=== PATIENT | female | born 1970 | race Caucasian/White ===

== ENCOUNTER → 2021-03-24 13:34 | Outpatient (CLI) | payer MEDICAID, SELFPAY | PROVIDERS: PCP Emergency Medicine; Visit Provider Nurse Practitioner Family | DX: R06.00 Dyspnea, unspecified (principal); R42 Dizziness and giddiness; R94.31 Abnormal electrocardiogram [ECG] [EKG]; R60.9 Edema, unspecified | CPT/HCPCS: 93306 ==

== ENCOUNTER 2021-06-18 15:36 | Emergency (ER) | payer MEDICAID, SELFPAY ==
[2021-06-18 14:57] VITALS: BP 124/70; PULSE 97; RESP 18; TEMP 37.4; O2SAT 99; BMI 36.6
--- NOTE | 2021-06-18 15:09 | XR_ITS ---
PROCEDURE INFORMATION: Exam: XR Left Ankle Exam date and time: 06/18/2021 3:09 PM Age: 50 years old Clinical indication: Pain; Left; Patient HX: [place]ell at park getting off swings and twisted ankle-- large hematoma and swelling present // an additional view oblique was ordered as sent as well; Additional info: Pain/injury TECHNIQUE: Imaging protocol: XR Left ankle. Views: 1 or 2 views. COMPARISON: No relevant prior studies available. FINDINGS: Bones/joints: Fractures of the distal fibula as well as the medial malleolus present. There is no evidence of joint malalignment or dislocation. Soft tissues: Moderate overlying soft tissue swelling. IMPRESSION: 1. Fractures of the distal fibula as well as the medial malleolus present. 2. Moderate overlying soft tissue swelling. 3. No evidence of acute dislocation.
[2021-06-18 15:30] VITALS: BP 123/71; PULSE 84; RESP 17; O2SAT 100
--- NOTE | 2021-06-18 15:32 | XR_ITS ---
PROCEDURE INFORMATION: Exam: XR Left Ankle Exam date and time: 06/18/2021 3:32 PM Age: 50 years old Clinical indication: Pain; Left; Patient HX: [place] park getting [place] swings and twisted ankle-- large hematoma and swelling present // this view ordered in addition to the 2view already sent; Additional info: Pain/injury TECHNIQUE: Imaging protocol: XR Left ankle. Views: 3 or more views. COMPARISON: CR XR ANKLE LT 2V 06/18/2021 3:24 PM FINDINGS: Bones/joints: Fracture of the distal fibula is present with moderate overlying soft tissue swelling. A lucency is present to the medial malleolus and may represent an acute or subacute fracture. There is no evidence of joint malalignment or dislocation. Soft tissues: See Bones/joints finding. IMPRESSION: 1. Fracture of the distal fibula is present with moderate overlying soft tissue swelling. 2. A lucency is present to the medial malleolus and may represent an acute or subacute fracture. 3. No evidence of acute dislocation.
--- NOTE | 2021-06-18 15:37 | HMH.EDGENADL ---
ED Disposition Clinical Impression: Fracture of distal fibula Qualifiers: Encounter type: initial encounter Fracture type: closed Fracture morphology: unspecified fracture morphology Laterality: left Qualified Code(s): S82.832A - Other fracture of upper and lower end of left fibula, initial encounter for closed fracture Disposition: Home, Self-Care Condition on Discharge: Good Instructions: DI for Ankle Fracture, How to Take Care of Your Splint Additional Instructions: Orthopedic boot until seen by Dr. Copeland next week. Apply ice to ankle 20 minutes 4-5 times a day, elevate leg. Additional instructions for FRACTURED (BROKEN) BONE: See Dr. Copeland as soon as possible for further evaluation. Treat your splint like you would a cast: Do not get it wet (cover with a plastic bag while bathing or showering). If the splint feels too tight, you may loosen the ronnie wrap covering it, but do not remove the splint. You may ice the fracture by applying an ice pack over the top of the splint, without removing the splint. Return to an emergency department immediately if you have uncontrollable pain, loss of feeling or inability to move your injured extremity. Additional instructions for CONTROLLED SUBSTANCES: You have been prescribed a medication that is a controlled substance. Controlled substances include pain medications known as opiates and sedative nerve medications known as benzodiazepines. Tramadol, fioricet, and gabapentin are also controlled substances. Some common opiates include: Codeine (such as Tylenol #3) Hydrocodone (Vicodin, Lortab, Lorcet, [place]) Oxycodone (Percocet, Percodan, Oxycodone, Oxy IR) Some common benzodiazepines include: Diazepam (Valium) Lorazepam (Ativan) Alprazolam (Xanax) Clonazepam (Klonopin) Oxazepam (Serax) All of these controlled substances are highly addictive and frequently abused. Misuse can and frequently does lead to addiction as well as overdose and . Medication should be stored in a locked cabinet or other secure storage unit. Do not store the medication in a motor vehicle. Short term supplies, 3 days or less, are prescribed because of the highly addictive nature of the medication. Any of the controlled substance medication NOT taken should be disposed of properly and NOT SAVED. The recommended method of disposing of unused medications is: Place the medicines in a sealable plastic bag. If the medicine is a solid, crush it or add water to dissolve it. Add something undesirable (cat litter, coffee grounds, etc.) Dispose of sealed bag in household trash Do not flush or pour unused medicines down a sink or drain. Controlled substances should not be shared, given away or sold. Because of the addictive nature and frequent abuse, these medications are sometimes stolen. These medications should be kept in a safe place where they cannot be stolen. Do not keep them in your car or purse. Lost or stolen prescriptions for controlled substances WILL NOT BE REFILLED in this emergency department, regardless of whether a police report was filed. Prescriptions: Hydrocod/Acet 5/325 mg [[place] 5/325mg tablet] 1 tab PO Q6HP PRN #10 tab PRN Reason: Pain Prescription Printed Referrals: Provider,Referral, [Primary Care Provider] - Jeremy Copeland MD [Staff Physician] - 3 days - Critical Care Critical Care Time: No Attestation: On , the high probability of a clinically significant, sudden or life threatening deterioration of the following system(s) required my full and direct attention, intervention and personal management. The time I documented below is in addition to time spent performing reported procedures but includes the following listed in this critical care notation. Medical Decision Making - Bruno Inquiry Pt receiving controlled substance: Yes Bruno was queried for this patient: Yes Risks and benefits of using a controlled substance: were discussed with pt
--- NOTE | 2021-06-18 15:54 | PC.NURSE ---
Radiology in room
[2021-06-18 16:00] VITALS: BP 132/76; PULSE 77; RESP 18; O2SAT 97
--- NOTE | 2021-06-18 16:22 | PC.NURSE ---
boot applied to left ankle/leg
[2021-06-18 16:31] VITALS: BP 104/67; PULSE 78; RESP 19; O2SAT 97
[2021-06-18 18:04] VITALS: BP 110/70; PULSE 75; RESP 16; TEMP 36.8; O2SAT 98
== END 2021-06-18 18:05 | disposition home or self-care (01) ==
PROVIDERS: Emergency Provider Emergency Medicine
DX: S82.832A Other fracture of upper and lower end of left fibula, initial encounter for closed fracture (principal); X50.1XXA Overexertion from prolonged static or awkward postures, initial encounter; Y92.197 Garden or yard of other specified residential institution as the place of occurrence of the external cause; F41.9 Anxiety disorder, unspecified
CPT/HCPCS: 29515; 73600; 73610; 96372; 99283; J2405

== ENCOUNTER → 2021-06-24 14:15 | Outpatient (CLI) | payer MEDICAID, SELFPAY ==
--- NOTE | 2021-06-24 15:55 | XR_ITS ---
PROCEDURE INFORMATION: Exam: XR Chest Exam date and time: 06/24/2021 3:55 PM Age: 50 years old Clinical indication: Shortness of breath; Additional info: Smoker TECHNIQUE: Imaging protocol: XR of the chest. Views: 2 views. COMPARISON: No relevant prior studies available. FINDINGS: Lungs: Unremarkable. No consolidation. Pleural spaces: Unremarkable. No pleural effusion. No pneumothorax. Heart/Mediastinum: Unremarkable. No cardiomegaly. Bones/joints: Unremarkable. IMPRESSION: No acute findings.
== END ==
PROVIDERS: PCP Orthopaedic Surgery; Visit Provider Orthopaedic Surgery
DX: Z01.818 Encounter for other preprocedural examination (principal); Z72.0 Tobacco use
CPT/HCPCS: 71046

== ENCOUNTER → 2021-06-24 15:25 | Outpatient (CLI) | payer MEDICAID, SELFPAY ==
[2021-06-24 16:05] LABS: Basophils # 0.1 K/mm3 (0-0.2); Basophils % 0.8 % (0.1-2.0); Eosinophils # 0.2 K/mm3 (0.0-0.4); Eosinophils % 2.1 % (0.1-12.0); Hematocrit 49.3 % (37.0-47.0); Hemoglobin 15.6 g/dL (12.2-16.2); Lymphocytes # 2.2 K/mm3 (0.7-4.5); Lymphocytes % 21.3 % (10-50); Mean Corpuscular HGB Conc 31.7 g/dL (31.8-35.4); Mean Corpuscular Hemoglobin 32.5 pg (27.0-31.2); Mean Corpuscular Volume 102.5 fl (81-99); Monocytes # 0.8 K/mm3 (0.1-1.0); Monocytes % 8.1 % (1.7-9.3); Neutrophils % 67.7 % (37.0-80.0); Platelet Count 306 K/mm3 (142-424); Red Blood Count 4.81 M/mm3 (4.20-5.40); Red Cell Distribution Width 13.3 % (11.5-17.5); White Blood Count 10.3 K/mm3 (4.8-10.8)
[2021-06-24 16:17] LABS: Chloride 102 mmol/L (98-107); Potassium 4.5 mmoL/L (3.5-5.1); Sodium 141 mmol/L (136-145)
[2021-06-24 16:20] LABS: Blood Urea Nitrogen 11 mg/dl (7-17); Estimated Glomerular Filt Rate 89 ml/min (>60); GFR (African American) 108 ML/MIN (>60)
[2021-06-24 16:21] LABS: Anion Gap 14.5 mEq/L (5-15); Calcium 9.7 mg/dl (8.4-10.2); Carbon Dioxide 29 mmol/L (22.0-30.0); Glucose 108 mg/dl (74-100)
== END ==
PROVIDERS: Visit Provider Orthopaedic Surgery
DX: S82.832A Other fracture of upper and lower end of left fibula, initial encounter for closed fracture (principal)
CPT/HCPCS: 36415; 80048; 85025

== ENCOUNTER → 2021-06-29 11:12 | Outpatient (CLI) | payer MEDICAID, SELFPAY ==
--- NOTE | 2021-06-29 11:14 | CT_ITS ---
PROCEDURE: CT ANKLE LT WO CON CLINICAL HISTORY: Left distal fibula fracture COMPARISON: CR XR ANKLE LT 2V from 06/18/2021 CR XR ANKLE LT MIN 3V from 06/18/2021 TECHNIQUE: Axial images obtained with sagittal and coronal reformats. All CT scans at the facility use one or more dose reduction, viz: automated exposure control, ma/kV adjustment per patient size (including targeted exams where dose is matched to indication, i.e. head), or iterative reconstruction technique. FINDINGS: There is an ununited fracture at the base of the medial malleolus with minimal distraction of the fracture fragments by approximately 2 mm. There is good alignment of the medial malleolus. There is a minimally displaced oblique distal fibular fracture with 2 mm dorsal displacement of the distal fracture fragment. There does appear to be some minor bony union along the distal and lateral aspect of this fracture. In addition, there is an avulsion fracture of the anterior most distal aspect the fibula. The anterior fracture fragment measures 13 by 3 mm and is displaced anteriorly by 3-4 mm. Soft tissue swelling is present about the anterior lateral and lateral aspect of the ankle with some subcutaneous edema also noted at this region. The ligaments are not well demonstrated by CT. Tendinous structures have an unremarkable appearance. There is minimal widening of the ankle mortise anteriorly at the region of the avulsed fibular fragment. No additional fractures are apparent. IMPRESSION: 1. Ununited nondisplaced medial malleolar fracture 2. Minimally displaced oblique distal fibular fracture with an avulsion fracture of the anterior and distal tip of the fibula mildly displaced with minimal widening of the ankle mortise Dictated by: Po Ocampo MD 06/30/2021 09:33 Po Ocampo MD in [facility] 06/30/2021 09:33
== END ==
PROVIDERS: PCP Orthopaedic Surgery; Visit Provider Orthopaedic Surgery
DX: Z01.818 Encounter for other preprocedural examination (principal); Z11.52 Encounter for screening for COVID-19; S82.52XK Displaced fracture of medial malleolus of left tibia, subsequent encounter for closed fracture with nonunion; S82.832A Other fracture of upper and lower end of left fibula, initial encounter for closed fracture
CPT/HCPCS: 73700; C9803; U0003; U0005

== ENCOUNTER 2021-07-01 07:10 | Day surgery (SDC) | payer MEDICAID, SELFPAY ==
[2021-07-01] VITALS (9 sets, daily range): BP systolic 115–153; BP diastolic 63–86; PULSE 93–107; RESP 12–18; TEMP 36.4–36.9; O2SAT 92–99; BMI 37.4
--- NOTE | 2021-07-01 08:14 | HMH.ANESCL ---
[facility] Anesthesia Checklist - Structural Data Admitted From: Home Planned Operative Procedure/s: orif l ankle Consent for Planned Operative Procedure(s) Verified: Yes - Additional verifications Anesthesia Reactions: No Hx Blood Transfusions: No Blood Transfusion Reaction: No - Airway Assessment C-Spine Mobility Assessed: Yes TMJ Mobility Assessed: Yes Dentition: Good Dentition - Neurological Assessment Level of Consciousness: Awake, Alert, Appropriate - Anesthesia Plan Anesthesia Risk discussed: Yes Anesthesia Plan: Verified ASA Class: II Anesthesia Type: General w/block - Preoperative Comments Pre-Operative Comments: explained sciatic block to pt incl risks. pt agrees to proceed [facility] History I have reviewed the patient's past medical history: Yes Medical History: Reports:: Anxiety Denies:: Cancer, Diabetes Mellitus Type 1, Diabetes Mellitus Type 2, Internal Pacemaker, MRSA, Seizures *Have you ever received a pneumonia vaccine?: No *Have you received a flu vaccine this season?: No Other Medical History: Denies: Blood Transfusion Reaction Anesthesia experience/problems:: none Laterality Cases: Bilateral: Tonsillectomy Other Surgeries: Yes: Other. No: Pacemaker Amputation: No - *Social History Last grade of school completed: High school graduate Smoking Status: Current every day smoker Tobacco Type: cigarettes # Packs/Day (cigarettes): 1 Alcohol Intake: never Substance Use Type: denies use *Occupational Status:: disabled Housing: assisted living facility *Travel in the last 8 weeks: None - Psychiatric History Pschychiatric History:: Reports:: Anxiety Family Hx:: No significant family history
[2021-07-01 08:17] LABS: Urine Pregnancy, HCG Qual. Negative (Negative)
--- NOTE | 2021-07-01 10:53 | HMH.ANESI ---
[facility] Anesthesia Record Part I Intake, IV Amount: 1,500 Estimated blood loss (mL): 0 Urine output (mL): 0 Blood Pressure: 121/86 SaO2: 94 Pulse Rate: 102 Respiratory Rate: 12 Temperature: 98.2 F Patient is:: Awake, Stable Stable to PACU at:: 10:50
--- NOTE | 2021-07-01 10:54 | XR_ITS ---
PROCEDURE: XR ANKLE LT 2V CLINICAL INDICATION: fX - ORIF LT ANKLE COMPARISON: CR XR ANKLE LT 2V from 06/18/2021 CR XR ANKLE LT MIN 3V from 06/18/2021 FINDINGS: Fluoroscopy time: 1.06 minutes. Status post ORIF medial malleolus and fibula with good alignment. IMPRESSION: Fluoroscopy assisted of the left ankle Dictated by: Po Ocampo MD 07/01/2021 13:12 Po Ocampo MD in [facility] 07/01/2021 13:12
--- NOTE | 2021-07-01 11:43 | HMH.OPNOTE ---
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 I had a discussion with her and her core drill operator regarding further management, given the unstable nature of the bimalleolar ankle fracture with nonunion medial malleolus, I recommended open reduction internal fixation of her left medial and lateral malleolus with allograft of the medial malleolus. They were amenable with the plan. We discussed the risk and benefits of surgery. Risks included but were not limited to pain, bleeding, infection, damage to adjacent structures, need for further surgery, wound healing complications, loss of limb, . Patient and core drill operator expressed verbal consent and written consent was obtained for the above procedure. Patient was identified in preoperative holding. Operative site was marked in indelible ink. History, physical, consent were reviewed and updated. Patient was surrendered to the anesthesia team, taken to the operative suite, placed supine on a well-padded operative table. Ipsilateral hip bump was placed as was a nonsterile thigh tourniquet. Anesthesia was induced. The operative extremity was prepped and draped in the usual sterile fashion. The operative team donned sterile gowns and gloves and a timeout was called. All in attendance agreed regarding the patient's identity, procedure, operative site. Weight-based dose of antibiotics was given prior to incision. I made a lateral approach to the fibula, dissected the skin and subcutaneous tissue with care taken to avoid injuring the superficial peroneal nerve. Identified the fracture, cleaned of interposed hematoma, provisionally reduce this and secure fixation with a lag screw by technique followed by lateral fibular neutralization plate with locking screws. Insert my attention to the medial ankle, dissected through skin and subcutaneous tissue with care taken to avoid injuring the saphenous nerve and vein. Identified the medial malleolar fracture which I freed up with an osteotome, perforated both sides of the fracture, clean date of fibrous tissue, placed V 92 allograft, provisionally clamped and secured fixation with 2 long cortical screws with washers. I performed an external rotation stress test, noted subtle medial joint space widening, manually reduce the syndesmosis and placed a syndesmotic screw through 4 cortices. Wounds were closed in anatomic layers. Sterile dressings applied by well-padded short leg splint. Counts were correct x2. There were no apparent complications. I was present and scrubbed for the entire case. Condition: stable Disposition: PACU Complications:: None
== END 2021-07-01 11:58 | disposition home or self-care (01) ==
LOC: OR 07:12
PROVIDERS: PCP Orthopaedic Surgery; Visit Provider Orthopaedic Surgery
PROC: (CPT 27792; principal; 2021-07-01 07:30)
DX: S82.62XA Displaced fracture of lateral malleolus of left fibula, initial encounter for closed fracture (principal); S82.52XK Displaced fracture of medial malleolus of left tibia, subsequent encounter for closed fracture with nonunion; Y92.096 Garden or yard of other non-institutional residence as the place of occurrence of the external cause; W17.89XA Other fall from one level to another, initial encounter; M24.472 Recurrent dislocation, left ankle
CPT/HCPCS: 27792; 27829; 27720; 73600; 76000; 81025; 96374; C1713; C1776; J2405

== ENCOUNTER → 2021-07-15 10:24 | Outpatient (CLI) | payer MEDICAID, SELFPAY ==
--- NOTE | 2021-07-15 10:35 | XR_ITS ---
PROCEDURE: XR ANKLE LT MIN 3V CLINICAL INDICATION: sp ORIF LT fibula, out of splint COMPARISON: CR XR ANKLE LT MIN 3V from 06/18/2021 FINDINGS: There is a distal fibular metallic side plate with multiple threaded screws fixating the plate to the distal fibula a transfix again stabilizing the fracture distal fibula. One of the threaded screws extends through the fibula into the distal tibia. There also are 2 obliquely oriented threaded screws through transfixing the old medial malleolar fracture fragment in near anatomic alignment. The ankle mortise appears grossly normal. There is mild diffuse soft tissue swelling both medially and laterally. IMPRESSION: Postsurgical changes as noted Dictated by: Dr. Kemal Mitchell MD 07/15/2021 11:01 Dr. Kemal Mitchell MD in [facility] 07/15/2021 11:01
== END ==
PROVIDERS: PCP Emergency Medicine; Visit Provider Orthopaedic Surgery
DX: S82.832D Other fracture of upper and lower end of left fibula, subsequent encounter for closed fracture with routine healing (principal); Z09 Encounter for follow-up examination after completed treatment for conditions other than malignant neoplasm
CPT/HCPCS: 73610

== ENCOUNTER 2021-07-15 11:29 | Outpatient (RCR) | payer MEDICAID, SELFPAY | END 2021-07-15 12:47 | disposition home or self-care (01) | LOC: PT 11:29 | PROVIDERS: Visit Provider Orthopaedic Surgery | DX: S82.832A Other fracture of upper and lower end of left fibula, initial encounter for closed fracture (principal) | CPT/HCPCS: 97760 ==

== ENCOUNTER → 2021-08-19 13:30 | Outpatient (CLI) | payer MEDICAID, SELFPAY ==
--- NOTE | 2021-08-19 13:39 | XR_ITS ---
PROCEDURE: XR ANKLE LT 2V CLINICAL INDICATION: ORIF lt ankle COMPARISON: CR XR ANKLE LT 2V from 06/18/2021 CR XR ANKLE LT MIN 3V from 06/18/2021 CR XR ANKLE LT 2V from 07/01/2021 CR XR ANKLE LT MIN 3V from 07/15/2021 FINDINGS: Status post ORIF distal tib fib. Lateral fibular bone plate with screw extending from the lateral bone plate into the tibia once again noted. Two diagonal screws within the medial malleolar region. There is a healing fracture involving the distal tibia. The fracture has occurred at the region of the transverse screw which extends from the fibula to the tibia. There is 3 mm lateral displacement of the distal fracture fragment. The medial malleolar fracture line is still visible with the distal aspect slightly displaced medially. IMPRESSION: Status post ORIF of the distal tibia and fibula now with a transverse fracture of the distal tibia at the level of the transverse screw extending from the lateral fibular bone plate into the tibia mildly displaced. Un united medial malleolar fracture. Dictated by: Po Ocampo MD 08/19/2021 14:27 Po Ocampo MD in [facility] 08/19/2021 14:27
== END ==
PROVIDERS: PCP Emergency Medicine; Visit Provider Orthopaedic Surgery
DX: S82.832A Other fracture of upper and lower end of left fibula, initial encounter for closed fracture (principal)
CPT/HCPCS: 73600

== ENCOUNTER → 2021-08-25 06:18 | Outpatient (CLI) | payer MEDICAID, SELFPAY ==
--- NOTE | 2021-08-25 06:20 | CT_ITS ---
PROCEDURE INFORMATION: Exam: CT Left Lower Extremity Without Contrast, Ankle Exam date and time: 08/25/2021 6:20 AM Age: 51 years old Clinical indication: Pain; Left; Prior surgery; Surgery date: 1-6 months; Patient HX: Ankle fracure, S/P surgery follow-up; Additional info: S/P lt ankle fracture TECHNIQUE: Imaging protocol: CT of the Left lower extremity without contrast was performed. Exam focused on the ankle. 3D rendering (Not supervised by radiologist): MIP and/or 3D reconstructed images were created by the technologist. Radiation optimization: All CT scans at this facility use at least one of these dose optimization techniques: automated exposure control; mA and/or kV adjustment per patient size (includes targeted exams where dose is matched to clinical indication); or iterative reconstruction. COMPARISON: 1. CT ANKLE LT WO CON 06/29/2021 11:18 AM 2. CR XR ANKLE LT 2V 08/19/2021 2:01 PM 3. CR XR ANKLE LT MIN 3V 07/15/2021 10:37 AM FINDINGS: Bones/joints: There is been no significant change in alignment in the transverse fracture involving the distal tibia at the level of the syndesmotic screw. This fracture demonstrates mild impaction and mild apex anterior angulation. Moderate marginal bone callus suggests that this is subacute. Orthopedic hardware involving the tibia and fibula is grossly intact within the limits of streak metal artifact. The chronic medial malleolus fracture is remains unhealed with minimal peripheral bone callus. The obliquely oriented fibular fracture has a moderate amount of bridging bone callus. Moderate disuse osteopenia is present. Partially healed fractures involve the second through fourth metatarsal bases. Soft tissues: Moderate soft tissue edema involves the ankle. IMPRESSION: 1. Healing mildly impacted and mildly angulated transverse fracture of the distal tibial diametaphysis at the level of the syndesmotic screw. 2. Healing oblique distal fibular fracture. 3. No significant healing involving the chronic medial malleolus fracture. 4. Partially healed fractures involving the second through fourth metatarsal bases. 5. Progressed disuse osteopenia.
== END ==
PROVIDERS: PCP Emergency Medicine; Visit Provider Orthopaedic Surgery
DX: S82.832A Other fracture of upper and lower end of left fibula, initial encounter for closed fracture (principal); Z09 Encounter for follow-up examination after completed treatment for conditions other than malignant neoplasm
CPT/HCPCS: 73700

== ENCOUNTER 2021-12-13 09:00 | Outpatient (RCR) | payer MEDICAID, SELFPAY ==
--- NOTE | 2021-10-25 10:20 | SW/DCPLANNER ---
[facility] has completed a PT evaluation for this patient today and has requested that patient have a rolling walker. I have called and updated Rafael peterson/ Grace/Abilio Schaeffer that this patient will need a rolling walker: PT evaluated has been faxed.
== END 2021-12-13 09:05 | disposition home or self-care (01) ==
LOC: PT 09:00
PROVIDERS: PCP Emergency Medicine; Visit Provider Orthopaedic Surgery
DX: M25.572 Pain in left ankle and joints of left foot (principal)
CPT/HCPCS: 97010; 97014; 97035; 97110; 97112; 97116; 97140; 97163; 97164; 97760; G0283

== ENCOUNTER 2022-06-17 18:08 | Emergency (ER) | payer MEDICAID, SELFPAY ==
--- NOTE | 2022-06-17 18:12 | HMH.EDSKAF ---
Discharge Plan Disposition Patient Disposition: Home, Self-Care Condition: Fair Prescriptions Prescriptions: New prednisone 20 mg tablet 60 mg PO DAILY Qty: 15 0RF No Action aspirin 81 mg tablet,delayed release (DR/EC) 81 mg PO DAILY divalproex [Depakote] 250 mg tablet,delayed release (DR/EC) 250 mg PO TID escitalopram oxalate 20 mg tablet 20 mg PO DAILY nortriptyline 25 mg capsule 25 mg PO HS acetaminophen 500 mg tablet 500 mg PO Q6H PRN (Reason: pain) sennosides [Senna Lax] 8.6 mg tablet 17.2 mg PO DAILY [place] Saline Gel 1 applic TOPICAL HS PRN (Reason: NASAL IRRITATION) Qty: 14.1 0RF aripiprazole 10 mg tablet 10 mg PO oxycodone 5 mg tablet 5 mg PO Q4H PRN (Reason: pain) Qty: 30 0RF metoprolol succinate 50 MG tablet extended release 24 hr 50 mg PO DAILY Activity Restrictions/Add. Instructions Additional Instructions/Restrictions: Follow-up with your primary care physician in about 3 to 4 days for wound check. If the symptoms do not improve within 1 week follow-up with a weed controller. Clinical Impressions Clinical Impression: Contact dermatitis Instructions Patient Instructions: Poison Sushila, Poison Onyx, Poison Sumac, DI for Contact Dermatitis Discharge ED Provider: Antonio Nicole Skin/Abscess/FB HPI General Chief complaint: Skin/Abscess/Foreign Body Stated complaint: rash on right foot, both hands Time Seen by Provider: 06/17/22 18:12 Mode of Arrival: EMS Source of Information: Patient History of Present Illness HPI narrative: The patient was brought to the emergency department by EMS from a psychiatric facility. The patient states that she had a rash that developed on her left small finger. It then spread to the right hand. And also spread to the right foot. It is pruritic. She has been applying cortisone cream. It is now oozing. It hurts when she scratches it. Denies fevers. Related Data Home Medications Medication Instructions Recorded Confirmed acetaminophen 500 mg tablet 500 mg PO Q6H PRN pain 09/15/20 03/14/22 aspirin 81 mg tablet,delayed 81 mg PO DAILY Blood thinner 09/15/20 03/14/22 release divalproex 250 mg tablet,delayed 250 mg PO TID . 09/15/20 03/14/22 release (Depakote) escitalopram oxalate 20 mg tablet 20 mg PO DAILY mood 09/15/20 03/14/22 nortriptyline 25 mg capsule 25 mg PO HS . 09/15/20 03/14/22 sennosides 8.6 mg tablet (Senna 17.2 mg PO DAILY . 09/15/20 03/14/22 Lax) metoprolol succinate 50 mg 50 mg PO DAILY bp 06/28/21 03/14/22 tablet,extended release 24 hr aripiprazole 10 mg tablet 10 mg PO 08/18/21 03/14/22 Previous Rx's Medication Instructions Recorded sodium chloride-aloe vera nasal 1 applic topical HS PRN NASAL 11/22/20 gel ([place] Saline nasal gel) IRRITATION #14.1 grams oxycodone 5 mg tablet 5 mg PO Q4H PRN pain #30 tabs 07/01/21 prednisone 20 mg tablet 60 mg PO DAILY #15 tabs 06/17/22 Allergies Allergy/AdvReac Type Severity Reaction Status Date / Time azithromycin Allergy Verified 03/14/22 15:42 PFSH [facility] Medical History Abnormal EKG Dizziness Dyspnea Edema Social History Smoking Status: Never smoker alcohol intake: never substance use type: denies use current occupational status: disabled Travel in the last 8 weeks: None housing: assisted living facility caffeine: Yes ROS Obtained: Yes All systems reviewed & no additional complaints except as documented Physical Exam General General appearance: alert and in no apparent distress Head Head exam: atraumatic, normocephalic and normal inspection Eye Eye exam: Present normal appearance, PERRL and EOMI ENT ENT exam: Present normal exam, normal oropharynx, mucous membranes moist, TM's normal bilaterally and normal external ear exam Neck Neck exam: Present normal inspection, full ROM and tr
[2022-06-17 18:15] VITALS: BP 119/80; PULSE 113; RESP 18; TEMP 37.2; O2SAT 99; BMI 33.3
--- NOTE | 2022-06-17 19:12 | PC.NURSE ---
spoke with employee at [facility] letting them know the pt was ready to be picked up they stated they will find ride. pt discharged to [facility]
[2022-06-17 19:15] VITALS: BP 107/64; PULSE 93; RESP 18; TEMP 37.2; O2SAT 98
== END 2022-06-17 19:17 | disposition home or self-care (01) ==
PROVIDERS: Emergency Provider Emergency Medicine; PCP Emergency Medicine
DX: L25.9 Unspecified contact dermatitis, unspecified cause (principal)

== ENCOUNTER 2022-06-19 22:47 | Inpatient (IN) | payer MEDICAID, SELFPAY ==
--- NOTE | 2022-06-19 22:42 | ECG_ITS ---
APPROVED REPORT Exam: Resting ECG HR:146 bpm ECG Measurements Heart Rate 146 AXES HI 139 P 61 QRSd 86 QRS -8 QT 291 T 79 QTc 375 Conclusion SINUS TACHYCARDIA, POSSIBLE ATRIAL FLUTTER SEPTAL MYOCARDIAL INFARCTION , PROBABLY OLD [40+ ms Q WAVE IN V1/V2] ABNORMAL ECG UNCONFIRMED REPORT Electronically signed by : Paul Gonzales MD 06/20/2022 19:58:52
[2022-06-19 22:47] VITALS: BP 108/65; PULSE 164; RESP 24; TEMP 38.8; O2SAT 94; BMI 45.7
--- NOTE | 2022-06-19 22:50 | CT_ITS ---
PROCEDURE INFORMATION: Exam: CT Head Without Contrast Exam date and time: 06/19/2022 11:41 PM Age: 51 years old Clinical indication: Injury or trauma; Unconscious; Additional info: Nonresponse TECHNIQUE: Imaging protocol: Computed tomography of the head without contrast. Radiation optimization: All CT scans at this facility use at least one of these dose optimization techniques: automated exposure control; mA and/or kV adjustment per patient size (includes targeted exams where dose is matched to clinical indication); or iterative reconstruction. COMPARISON: No relevant prior studies available. FINDINGS: Brain: No evidence of mass effect or midline shift. Right posterior frontal and right inferior frontal encephalomalacia and gliosis compatible with a remote insult. Patchy areas of hypodensity without mass-effect in the periventricular white matter compatible chronic microvascular ischemic disease. The johnston/white matter interfaces are preserved. The basal cisterns are patent. Cerebral ventricles: No ventriculomegaly. Paranasal sinuses: Visualized sinuses are unremarkable. No fluid levels. Mastoid air cells: Visualized mastoid air cells are well aerated. Bones/joints: Unremarkable. No acute fracture. Soft tissues: Unremarkable. IMPRESSION: 1. No CT evidence of intracranial hemorrhage, mass effect, midline shift or hydrocephalus. 2. Right posterior frontal and right inferior frontal encephalomalacia and gliosis compatible with a remote insult. 3. Patchy areas of hypodensity without mass-effect in the periventricular white matter compatible chronic microvascular ischemic disease.
[2022-06-19 22:51] LABS: ABG Base Excess -5.2 mmol/L (-2.4-2.3); ABG Oxygen Saturation 92 % (90-100); ABG PCO2 28.8 mmhg (35.0-45.0); ABG PH 7.44 mmol/L (7.35-7.45); ABG PO2 60.7 mmhg (80-100); ABG TCO2 19.9 mmhg (23-27)
--- NOTE | 2022-06-19 22:51 | CT_ITS ---
PROCEDURE INFORMATION: Exam: CT Cervical Spine Without Contrast Exam date and time: 06/19/2022 11:41 PM Age: 51 years old Clinical indication: Injury or trauma; Unconscious; Additional info: Nonresponsive TECHNIQUE: Imaging protocol: Computed tomography of the cervical spine without contrast. Radiation optimization: All CT scans at this facility use at least one of these dose optimization techniques: automated exposure control; mA and/or kV adjustment per patient size (includes targeted exams where dose is matched to clinical indication); or iterative reconstruction. COMPARISON: CR XR CHEST PORTABLE 06/19/2022 11:25 PM FINDINGS: Tubes, catheters and devices: NG tube and endotracheal tube in place. Bones/joints: No acute fracture. Normal alignment. No significant disc protrusion. No severe spinal central canal stenosis. C5-C6 left dorsal/lateral osteophyte causing left foraminal stenosis. Lungs: Lung apices are normal. Soft tissues: Unremarkable. IMPRESSION: 1. No acute fractures or listhesis. 2. Cervical spondylosis as described above. 3. NG tube and endotracheal tube in place.
--- NOTE | 2022-06-19 22:52 | XR_ITS ---
PROCEDURE INFORMATION: Exam: XR Pelvis Exam date and time: 06/19/2022 11:25 PM Age: 51 years old Clinical indication: Injury or trauma; Other: Unresponsive; Blunt trauma (contusions or hematomas); Does not apply; Pelvic region; Additional info: Nonresponsive TECHNIQUE: Imaging protocol: Radiologic exam of the pelvis. Views: 1 or 2 view. COMPARISON: No relevant prior studies available. FINDINGS: Bones/joints: Intact. No acute fractures or dislocations identified. There are no lytic or blastic lesions. The joints are preserved. Soft tissues: Unremarkable. Organs: Reich catheter in topography of the urinary bladder. IMPRESSION: No acute fracture or dislocation.
--- NOTE | 2022-06-19 22:52 | PC.NURSE ---
Pt arrived via ems. Per ems patient was found unresponsive in the shower room at [facility] with brown vomitus coming out of both her nose and mouth. When patient came into ER she was on a nonrebreather at 10L. Patient was immediately transferred from EMS stretcher to [facility] stretcher and additional IV, 18 gauge was placed in her left ac, arrived with 20g IV in right forearm with 500cc ns running to it. Patients heart rate on arrival was 160, sinus tach upon EKG.
--- NOTE | 2022-06-19 22:52 | PC.NURSE ---
Patient arrived via ems at 2235. Recepted at 2252. Patient arrived in acute distress, on a nonrebreather at 10L. Per EMS, patient was found unresponsive in the shower room at [place] at roughly
--- NOTE | 2022-06-19 22:54 | XR_ITS ---
PROCEDURE INFORMATION: Exam: XR Chest Exam date and time: 06/19/2022 11:25 PM Age: 51 years old Clinical indication: Device placement; Ett placement (vent status); Patient HX: Et placement and ng placement; Additional info: Nonresponsive TECHNIQUE: Imaging protocol: Radiologic exam of the chest. Views: 1 view. COMPARISON: CR XR CHEST 2V 06/24/2021 4:00 PM FINDINGS: Tubes, catheters and devices: Endotracheal tube 3.5 cm of the shae. NGT with the distal tip in topography of the stomach. Lungs: Central pulmonary vasculature prominence. No evidence of consolidations, interstitial patterns or pulmonary nodules. Pleural spaces: No evidence of effusions or pneumothorax. Heart/Mediastinum: The cardiomediastinal silhouette is normal in size and configuration. There is no evidence of cardiomegaly. Bones/joints: Intact. IMPRESSION: Central pulmonary vasculature prominence. No evidence of consolidations.
--- NOTE | 2022-06-19 23:06 | PC.NURSE ---
spoke with Jossy from night watch loading dose of Keppra 2000 mg.
--- NOTE | 2022-06-19 23:15 | PC.NURSE ---
RAD at BS for tube placement conformation
--- NOTE | 2022-06-19 23:25 | PC.NURSE ---
Addendum entered by Madai Lockhart RN 06/20/22 06:03: Patient also requiring frequent suctioning via ETT and orally. RT at bedside. Original Note: Called to ED to assist with care of patient at this time. Pt is on ventilator, not sedated at this time. Pt is biting the ETT and coughing, as well as over breathing the vent. ETT noted to be a size 7.5, location 23cm @ lip. Bilateral breath sounds auscultated, diminished t/o. BS hypoactive. F/C in place. NS bolus infusing at this time. Keppra bolus infusing at this time. Pt has no response to verbal stimuli, and is not following commands although is extremely restless, continues to blink, and raise up out of the bed. MD notified, verbal orders given to start pt on Fentanyl gtt per protocol, so that patient could safety be transported to CT. Fentanyl gtt mixed and started by Epifanio Ansari RN.
[2022-06-19 23:35] VITALS: BMI 47.2
--- NOTE | 2022-06-19 23:38 | PC.NURSE ---
Pt gone to RAD for CT
--- NOTE | 2022-06-19 23:38 | PC.NURSE ---
Attempted to transfer patient to ct scan with respiratory therapy and identification technician, when patient was transferred into the hallway the patient was noted to be having jerking motion in her extremeties. Patient was immediately moved back into her room. notified. Ativan ordered. Patient was intubated at the time of the seizure so airway stayed intact.
--- NOTE | 2022-06-19 23:43 | PC.NURSE ---
Patient was intubated by Dr.Thuri Rizvi with anesthesia. Sedation medications were given per verbal order. CO2 detector immediately changed colors to yellow and placement was secured by respiratory therapy. Placement confirmed via radiology following procedure. Patient remained hemodynamically stable during intubation.
[2022-06-19 23:46] VITALS: BP 89/56; PULSE 150; RESP 20; TEMP 38.1; O2SAT 93
--- NOTE | 2022-06-19 23:53 | PC.NURSE ---
Pt returned to room from RAD
[2022-06-20] VITALS (38 sets, daily range): BP systolic 80–127; BP diastolic 40–72; PULSE 78–127; RESP 16–27; TEMP 36.6–38.2; O2SAT 93–100; BMI 42.7
[2022-06-20] LABS: Microscopic, Urine URINE MICROSCOPIC (MICROSCOPIC)
[2022-06-20 00:02] LABS: Coronavirus 19, PCR Not Detected (NotDetected); Influenza A, PCR Not Detected (NotDetected); Influenza B, PCR Not Detected (NotDetected)
[2022-06-20 00:04] LABS: Allen's Test Patient Unable; Oxygen 100% %; Source Left Radial
[2022-06-20 00:07] LABS: ABG Base Excess -7.9 mmol/L (-2.4-2.3); ABG HCO3 17.5 mmhg (22.0-26.0); ABG Oxygen Saturation 97 % (90-100); ABG PCO2 31.6 mmhg (35.0-45.0); ABG PH 7.36 mmol/L (7.35-7.45); ABG PO2 93.7 mmhg (80-100); ABG TCO2 18.5 mmhg (23-27); Allen's Test Patient Unable; Oxygen 100% %; PEEP 5; Tidal Volume 440; Vent Rate 20
[2022-06-20 00:08] LABS: Source Left Radial
[2022-06-20 00:09] LABS: Basophils # 0.3 K/mm3 (0-0.2); Basophils % 2.1 % (0.1-2.0); Eosinophils # 0.1 K/mm3 (0.0-0.4); Eosinophils % 0.6 % (0.1-12.0); Hematocrit 41.6 % (37.0-47.0); Hemoglobin 13.1 g/dL (12.2-16.2); Lymphocytes # 2.9 K/mm3 (0.7-4.5); Mean Corpuscular HGB Conc 31.5 g/dL (31.8-35.4); Mean Corpuscular Hemoglobin 32.4 pg (27.0-31.2); Mean Platelet Volume 8.3 fl (7.4-10.4); Monocytes # 1.6 K/mm3 (0.1-1.0); Neutrophils # 9.5 K/mm3 (1.8-7.8); Neutrophils % 66.3 % (37.0-80.0); Platelet Count 200 K/mm3 (142-424); Red Blood Count 4.04 M/mm3 (4.20-5.40); Red Cell Distribution Width 13.6 % (11.5-17.5); White Blood Count 14.3 K/mm3 (4.8-10.8)
[2022-06-20 00:12] LABS: Appearance,Urine CLEAR (Clear); Bilirubin,Urine Negative (Negative); Blood, Urine Negative (Negative); Color,Urine Yellow (Yellow); Glucose,Urine (UA) Negative (Negative); Ketones,Urine Negative (Negative); Leukocyte Esterase,Urine Negative (Negative); Nitrate,Urine Negative (Negative); Protein,Urine Negative (Negative); Specific Gravity, Urine 1.025 (1.005-1.030); Urobilinogen,Urine 0.2 EU/dl (0.2)
[2022-06-20 00:16] LABS: Squamous Epithelial Cell,Urine Occasional #/hpf (0-5); WBC,Urine Occasional #/hpf (0-3)
[2022-06-20 00:17] LABS: Lactic Acid 7.1 mmol/L (0.7-2.1)
--- NOTE | 2022-06-20 00:17 | PC.NURSE ---
Dr. Rinaldi notified of critical lactic acid
[2022-06-20 00:20] LABS: Amylase 104 U/L (30-110); Chloride 107 mmol/L (98-107); Potassium 3.9 mmoL/L (3.5-5.1); Sodium 140 mmol/L (136-145)
--- NOTE | 2022-06-20 00:20 | PC.NURSE ---
Tricia Mendez state Guardian [phone] full consent given for treatment
[2022-06-20 00:26] LABS: Valproic Acid, (Depakene) 27.1 ug/ml (50-100)
[2022-06-20 00:29] LABS: C-Reactive Protein 88.5 mg/L (0-4)
[2022-06-20 00:34] LABS: Anion Gap 16.9 mEq/L (5-15); Blood Urea Nitrogen 15 mg/dl (7-17); Calcium 8.1 mg/dl (8.4-10.2); Carbon Dioxide 20 mmol/L (22.0-30.0); Creatinine Clearance Estimated 39 mL/min (50-200); Estimated Glomerular Filt Rate 37 ml/min (>60); GFR (African American) 45 ML/MIN (>60); Glucose 178 mg/dl (74-100); Lipase 63 U/L (23-300); Magnesium 1.6 mg/dl (1.6-2.3)
[2022-06-20 00:41] LABS: Procalcitonin 6.74 ng/mL (0.0-2.0); T4 (Thyroxine) 6.1 ug/dl (5.53-11.0)
--- NOTE | 2022-06-20 00:48 | PC.NURSE ---
2328 - accompanied pt to CT at this time. Pt tolerated procedure well.
--- NOTE | 2022-06-20 00:50 | PC.NURSE ---
2353 - pt returned to ed room [address] At this time pt is biting on the ET tube and raising arms. Dr. Rinaldi notified. No new orders at this time. Sepsis fluid bolus remains infusing.
[2022-06-20 00:51] LABS: Troponin I 0.64 ng/ml (0.00-0.034)
--- NOTE | 2022-06-20 00:51 | PC.NURSE ---
2330 - sepsis fluid bolus started at this time. Total amount to be given is 1640ml per mar.
--- NOTE | 2022-06-20 00:51 | PC.NURSE ---
0005 - sepsis fluid bolus complete. Propofol started at 25mcg per MD order. Fentanyl gtt stopped due to low bp.
--- NOTE | 2022-06-20 00:53 | INFXCTL.NOTE ---
troponin 0.64 critical called by Teresa in lab reported to DR SCHULZ NO NEW ORDERS AT THIS TIME
[2022-06-20 00:55] LABS: Thyroid Stimulating Hormone 1.03 uIU/mL (0.465-4.68)
[2022-06-20 01:00] LABS: Erythrocyte Sedimentation Rate 102 mm/hr (0-20)
--- NOTE | 2022-06-20 01:11 | PC.NURSE ---
Notified Dr Rinaldi of low BP - 79/41. NS bolus of 1000ml infusing at this time. Will recheck BP in 15 min.
--- NOTE | 2022-06-20 01:17 | PC.NURSE ---
called night watch and s/w Jossy for vancomycin consult
--- NOTE | 2022-06-20 01:23 | PC.NURSE ---
IV metoprolol held at this time due to pt bp. Notified dr camilo pt had a map of 49, and this is the 2nd consecutive bp with a map <65. MD stated to start Levophed gtt at this time. Order to be entered by .
--- NOTE | 2022-06-20 01:40 | PC.NURSE ---
0133 - levophed gtt started at this time at 4mcg/kg - will titrate as needed. report received from mark haro rn at this time
--- NOTE | 2022-06-20 01:48 | PC.NURSE ---
johanny notified of pt admission
--- NOTE | 2022-06-20 01:52 | PC.NURSE ---
PATIENT ADMITTED TO [address] TO SERVICE OF DR. CARRENO WITH DX OF SEPTIC SHOCK, CELLULITIS AND SEIZURES.
--- NOTE | 2022-06-20 01:58 | PC.NURSE ---
BP 88/47 HR 99, LEVAPHED INCREASED TO 10 MCG/MIN. INTERACTIVE ART DIRECTOR SINUS. SKIN WARM AND DRY TO TOUCH, 3 RD IV STARTED TO LEFT UPPER ARM X 1 STICK.
--- NOTE | 2022-06-20 01:58 | HMH.EDSEIZ ---
Discharge Plan Disposition Patient Disposition: Admitted As Inpatient Chief Complaint: Seizure Clinical Impressions Clinical Impression: Generalized seizure, Cellulitis, Severe sepsis with acute organ dysfunction, Septic shock Discharge ED Provider: Jung Rinaldi Seizures HPI General Chief Complaint: Seizure Stated Complaint: emergent Time Seen by Provider: 06/19/22 23:00 Mode of Arrival: EMS Source of Information: EMS and Medical Record Limitations: pt unresponsive Description of Symptoms (Recalled from ER Triage Doc. by RN): pt arrived per EMS pt was found in the shower down in the floor with a brown liquid coming out of her nose and mouth. per ems pt was succtioned prior to arrival to maintain air way. pt was on 10l o2 nonrebreather. pt was only responsive to pianful stimuli and suctioning History of Present Illness HPI Narrative: pt with hx of cellulitis rt lower ext from [facility] found in shower - pt has hx of sz disorder - pt with breathing but dec loc - pt had sz in the ed - bilat t/c - also with fever - MD complaint: possible seizure Onset (ago): hour(s) Description of Episode: tonic-clonic movement Witnessed: yes - by EMS Trauma: No Seizure History: known seizure disorder Place: other ([facility] ) Possible Precipitating Event: fever Treatments prior to arrival: none Related Data Home Medications Medication Instructions Recorded Confirmed acetaminophen 500 mg tablet 500 mg PO Q6H PRN pain 09/15/20 03/14/22 aspirin 81 mg tablet,delayed 81 mg PO DAILY Blood thinner 09/15/20 03/14/22 release divalproex 250 mg tablet,delayed 250 mg PO TID seizures 09/15/20 06/20/22 release (Depakote) escitalopram oxalate 20 mg tablet 20 mg PO DAILY mood 09/15/20 06/20/22 nortriptyline 25 mg capsule 25 mg PO HS . 09/15/20 06/20/22 sennosides 8.6 mg tablet (Senna 17.2 mg PO DAILY constipation 09/15/20 06/20/22 Lax) metoprolol succinate 50 mg 50 mg PO DAILY bp 06/28/21 06/20/22 tablet,extended release 24 hr aripiprazole 10 mg tablet 10 mg PO 08/18/21 03/14/22 Previous Rx's Medication Instructions Recorded sodium chloride-aloe vera nasal 1 applic topical HS PRN NASAL 11/22/20 gel ([place] Saline nasal gel) IRRITATION #14.1 grams oxycodone 5 mg tablet 5 mg PO Q4H PRN pain #30 tabs 07/01/21 prednisone 20 mg tablet 60 mg PO DAILY #15 tabs 06/17/22 Allergies Allergy/AdvReac Type Severity Reaction Status Date / Time azithromycin Allergy Verified 06/20/22 02:26 PFSH PFSH Medical History (Updated 06/20/22 @ 02:38 by Jung Rinaldi MD) Abnormal EKG Dizziness Dyspnea Edema Seizure Seizure Social History Smoking Status: Unknown if ever smoked alcohol intake: never substance use type: denies use current occupational status: disabled Travel in the last 8 weeks: None housing: assisted living facility caffeine: Yes ROS Obtained: Yes unobtainable due to mental status Physical Exam General General appearance: obtunded and obese Head Head exam: normocephalic Eye Eye exam: Present PERRL and EOMI; Absent nystagmus ENT ENT exam: Present other (some bleeding from mouth ) Neck Neck exam: Present trachea midline; Absent meningismus Respiratory Respiratory exam: Present other Cardiovascular Cardiovascular exam: Present tachycardia Abdominal Exam Abdominal exam: Present soft Extremities Exam Extremities exam: Absent calf tenderness Back Exam Back exam: Present normal inspection Neurological Exam Neurological exam: Present other (obtunded but no posturing ) Skin Skin exam: Present other (changes rt foot/hand with rt upper ext cellulitis ) Medical Decision Making Medical Records Medical records reviewed: Yes I reviewed the patient's medical records. Bruno Inquiry Pt receiving controlled substance: No Vital Signs: 06/19/22 22:47 06/20/22 00:18 06/20/22 00:18 Temperature 102 F H Temperature Source Rectal Pulse Ra
--- NOTE | 2022-06-20 02:05 | PC.NURSE ---
0144 - levophed titrated to 8mcg at this time. bp currently 98/42
--- NOTE | 2022-06-20 02:32 | PC.NURSE ---
PT ARRIVED TO FLOOR VIA STRETCHER AT THIS TIME
--- NOTE | 2022-06-20 02:58 | EXP.HP ---
History of Present Illness *Admission Date: 06/20/22 *Reason for visit:: Fall, unresponsiveness *History of present illness: Ms. Cosme is a 51 year old female who is a resident of a local long-term. She has a past medical history of seizure disorder. She was brought into the ER by EMS due to a fall in the shower. Per records when EMS arrived at the facility she had brown drainage coming from her nose and she was suctioned and placed on a non-rebreather. In the ER there was noted to be concern for seizure activity and the patient was obtunded. The patient was intubated for airway protection. Also in the ER the patient was found to be Febrile, Hypotensive, Tachycardia, WBC was >12,000 and she had a SBP <90. The patient was admitted with initial impression: Septic Shock. [facility] Medical History Abnormal EKG Dizziness Dyspnea Edema Seizure Seizure Social History Smoking Status: Unknown if ever smoked alcohol intake: never substance use type: denies use current occupational status: disabled Travel in the last 8 weeks: None housing: assisted living facility caffeine: Yes Review of Systems Review of Systems Review of systems:: unable to obtain Review of systems (narrative): The patient is sedated and on the ventilator Meds Home Medications and Allergies Home Medications Medication Instructions Recorded Confirmed Type acetaminophen 500 mg tablet 500 mg PO Q6H PRN pain 09/15/20 06/20/22 History aspirin 81 mg tablet,delayed 81 mg PO DAILY Blood thinner 09/15/20 06/20/22 History release divalproex 250 mg tablet,delayed 250 mg PO TID seizures 09/15/20 06/20/22 History release (Depakote) escitalopram oxalate 20 mg tablet 20 mg PO DAILY mood 09/15/20 06/20/22 History nortriptyline 25 mg capsule 25 mg PO HS . 09/15/20 06/20/22 History sennosides 8.6 mg tablet (Senna 17.2 mg PO DAILY constipation 09/15/20 06/20/22 History Lax) sodium chloride-aloe vera nasal 1 applic topical HS PRN NASAL 11/22/20 06/20/22 Rx gel ([place] Saline nasal gel) IRRITATION #14.1 grams metoprolol succinate 50 mg 50 mg PO DAILY bp 06/28/21 06/20/22 History tablet,extended release 24 hr oxycodone 5 mg tablet 5 mg PO Q4H PRN pain #30 tabs 07/01/21 06/20/22 Rx aripiprazole 10 mg tablet 10 mg PO HS Depression 08/18/21 06/20/22 History prednisone 20 mg tablet 60 mg PO DAILY #15 tabs 06/17/22 06/20/22 Rx New Prescriptions to Start Prescriptions: Allergies Allergy/AdvReac Type Severity Reaction Status Date / Time azithromycin Allergy Verified 06/20/22 02:26 Exam Data for Last 24 hours Vital signs and Labs for Last 24 Hours: Temp Pulse Resp BP Pulse Ox FiO2 99.1 F 106 H 23 80/40 L 99 100 06/20/22 01:00 06/20/22 01:30 06/20/22 01:45 06/20/22 01:30 06/20/22 01:45 06/20/22 00:18 Laboratory Results - last 24 hr 06/19/22 22:48: Specimen Source Left radial, O2 % 100%, ABG pH 7.44, ABG pCO2 28.8 L, ABG pO2 60.7 L, ABG HCO3 19.0 L, ABG Total CO2 19.9 L, ABG O2 Saturation 92, ABG Base Excess -5.2 L, Po Test Patient unable 06/19/22 22:52: Urine Color Yellow, Urine Appearance Clear, Urine pH 6.0, Ur Specific [place] 1.025, Urine Protein Negative, Urine Glucose (UA) Negative, Urine Ketones Negative, Urine Blood Negative, Urine Nitrate Negative, Urine Bilirubin Negative, Urine Urobilinogen 0.2, Ur Leukocyte Esterase Negative, Urine RBC None, Urine WBC Occasional, Ur Squamous Epith Cells Occasional, Urine Bacteria None 06/19/22 22:52: Lactate 7.1 H 06/19/22 23:55: WBC 14.3 H, RBC 4.04 L, Hgb 13.1, Hct 41.6, MCV 103.0 H, MCH 32.4 H, MCHC 31.5 L, RDW 13.6, Plt Count 200, MPV 8.3, Neut % (Auto) 66.3, Lymph % (Auto) 20.0, Scott % (Auto) 11.0 H, Eos % (Auto) 0.6, Baso % (Auto) 2.1 H, Neut # (Auto) 9.5 H, Lymph # (Auto) 2.9, Scott # (Auto) 1.6 H, Eos # (Auto) 0.1, Baso # (Auto) 0.3 H, ESR 102 H 06/19/22 23:55: So
--- NOTE | 2022-06-20 03:00 | PC.NURSE ---
0257 - upon arrival to unit, and getting patient situated in the icu bed, BP's noted to be 60's systolic. Manual BP taken, same reading. Increased Levophed gtt to 16 mcg at this time. Will continue to titrate to keep Sys>90.
[2022-06-20 03:52] LABS: Reflex Lactic Add Lactic Reflex
--- NOTE | 2022-06-20 03:54 | PC.NURSE ---
0350 blood obtained for repeated lactic and troponin levels. delayed due to lab personnel having difficulty obtaining sample. 0355 hospitalist here for rounds. discussed vte prophylaxis. no new orders at this time
[2022-06-20 04:03] LABS: Lactic Acid Follow Up (RFLX 1) 3.1 mmol/L (0.7-2.1)
[2022-06-20 04:18] LABS: Troponin I 1.01 ng/ml (0.00-0.034)
--- NOTE | 2022-06-20 04:20 | PC.NURSE ---
Critical troponin reported to Hospitalist at this time. No new orders given.
--- NOTE | 2022-06-20 04:28 | PC.WOUNDNOTE ---
Right foot/ankle ecchymosis, and lesions/scabs. No drainage.
--- NOTE | 2022-06-20 04:29 | PC.WOUNDNOTE ---
Redness/warm to touch
--- NOTE | 2022-06-20 04:29 | PC.WOUNDNOTE ---
Right middle finger. Redness, drainage, lesion like area.
--- NOTE | 2022-06-20 05:53 | PC.NURSE ---
Since arriving to the floor, pt has had no significant changes. Remains sedated with propofol at 20mcg. Responds to painful stimuli by withdrawing from pain. Does not open eyes at this time. Remains intubated, with Vent settings: AC Mode, PEEP 5, Rate 20, TV 440, FiO2 40%. Oxygen saturations remain 97-100%. Pt is not over breathing the vent, and is not biting the tube. ET tube remains in place @ 23 @ lip. Bite block in place. Oral care performed during rounds. LS remain diminished t/o. HR remains high 90's to low 100's. Remains in sinus rhythm/sinus tach. BP sustaining with map >65 with Levophed infusing at 16mcg. Right finger wound culture collected and sent to lab. No bm this shift. F/C remains patent, draining yellow urine. NG tube remains to left nare. No further fever at this time. No acute distress or changes noted, will continue to monitor.
[2022-06-20 05:54] LABS: Reflex Lactic (2 hrs) Add Lactic Reflex
--- NOTE | 2022-06-20 06:17 | PC.NURSE ---
Hospitalist here to check on patient. Requested that RT go on and drawn morning ABG. Notified RT. No further orders given.
[2022-06-20 06:48] LABS: ABG Base Excess -5.1 mmol/L (-2.4-2.3); ABG HCO3 19.5 mmhg (22.0-26.0); ABG Oxygen Saturation 96 % (90-100); ABG PH 7.42 mmol/L (7.35-7.45); ABG PO2 82.7 mmhg (80-100); ABG TCO2 20.4 mmhg (23-27)
[2022-06-20 06:52] LABS: Allen's Test ACCEPTABLE; Oxygen 40 %; PEEP 5; Tidal Volume 440; Vent Rate 20
[2022-06-20 06:53] LABS: Source R RADIAL
--- NOTE | 2022-06-20 07:05 | HMH.PROCNOTE ---
[facility] Procedure Note Date: 06/19/22 Time: 11:00 Procedure Note:: Called to ER by Dr. Rinaldi for intubation. RSI with Etomidate 10mg and Succs 100mg. Intubated with Drake 3. VSS
--- NOTE | 2022-06-20 07:38 | EXP.PHA.VTE ---
[facility] Pharmacy VTE Monitoring Patient Demographics Admission date: 06/20/22 Report Date: 06/20/22 Time: 07:38 Patient Allergies azithromycin Allergy (Verified 06/20/22 02:26) Height: 1.63 m Weight: 113.511 kg Current Active Problems (Updated 06/20/22 @ 03:26 by Venkatesh Torres DNP) Seizure disorder (Acute) Endotracheally intubated (Acute) Fall with injury (Acute) Septic shock (Acute) Generalized seizure (Acute) Cellulitis (Acute) Severe sepsis with acute organ dysfunction (Acute) Septic shock (Acute) VTE Risk Labs: VTE Related Lab Results Hgb 13.1 g/dL (12.2-16.2) 06/19/22 23:55 Hct 41.6 % (37.0-47.0) 06/19/22 23:55 Plt Count 200 K/mm3 (142-424) 06/19/22 23:55 BUN 15 mg/dl (7-17) 06/19/22 23:55 Creatinine 1.50 mg/dl (0.52-1.04) H 06/19/22 23:55 Estimated Creat Clear 39 mL/min (50-200) 06/19/22 23:55 Was VTE Risk Assessment Performed: Yes VTE Score: 8 VTE Risk Level: Moderate Risk Prophylaxis VTE Prophylaxis Ordered?: Yes Types of VTE Prophylaxis: IPCS Knee High
--- NOTE | 2022-06-20 08:50 | EXP.PHA.CONS ---
Pharmacy Consult Date: 06/20/22 Time: 08:50 Referring provider: DR. CARRENO Reason for Consult:: VANCOMYCIN DOSING Allergies Allergy/AdvReac Type Severity Reaction Status Date / Time azithromycin Allergy Verified 06/20/22 02:26 Home Medications Medication Instructions Recorded Confirmed Type acetaminophen 500 mg tablet 500 mg PO Q6H PRN pain 09/15/20 06/20/22 History aspirin 81 mg tablet,delayed 81 mg PO DAILY Blood thinner 09/15/20 06/20/22 History release divalproex 250 mg tablet,delayed 250 mg PO TID seizures 09/15/20 06/20/22 History release (Depakote) escitalopram oxalate 20 mg tablet 20 mg PO DAILY mood 09/15/20 06/20/22 History nortriptyline 25 mg capsule 25 mg PO HS . 09/15/20 06/20/22 History sennosides 8.6 mg tablet (Senna 17.2 mg PO DAILY constipation 09/15/20 06/20/22 History Lax) sodium chloride-aloe vera nasal 1 applic topical HS PRN NASAL 11/22/20 06/20/22 Rx gel ([place] Saline nasal gel) IRRITATION #14.1 grams metoprolol succinate 50 mg 50 mg PO DAILY bp 06/28/21 06/20/22 History tablet,extended release 24 hr oxycodone 5 mg tablet 5 mg PO Q4H PRN pain #30 tabs 07/01/21 06/20/22 Rx aripiprazole 10 mg tablet 10 mg PO HS Depression 08/18/21 06/20/22 History prednisone 20 mg tablet 60 mg PO DAILY #15 tabs 06/17/22 06/20/22 Rx New Prescriptions to Start Prescriptions: Height: 1.63 m Weight: 113.511 kg Laboratory Results:: Laboratory Results - last 24 hr 06/19/22 22:48: Specimen Source Left radial, O2 % 100%, ABG pH 7.44, ABG pCO2 28.8 L, ABG pO2 60.7 L, ABG HCO3 19.0 L, ABG Total CO2 19.9 L, ABG O2 Saturation 92, ABG Base Excess -5.2 L, Po Test Patient unable 06/19/22 22:52: Urine Color Yellow, Urine Appearance Clear, Urine pH 6.0, Ur Specific [place] 1.025, Urine Protein Negative, Urine Glucose (UA) Negative, Urine Ketones Negative, Urine Blood Negative, Urine Nitrate Negative, Urine Bilirubin Negative, Urine Urobilinogen 0.2, Ur Leukocyte Esterase Negative, Urine RBC None, Urine WBC Occasional, Ur Squamous Epith Cells Occasional, Urine Bacteria None 06/19/22 22:52: Lactate 7.1 H 06/19/22 23:55: WBC 14.3 H, RBC 4.04 L, Hgb 13.1, Hct 41.6, MCV 103.0 H, MCH 32.4 H, MCHC 31.5 L, RDW 13.6, Plt Count 200, MPV 8.3, Neut % (Auto) 66.3, Lymph % (Auto) 20.0, [place] % (Auto) 11.0 H, Eos % (Auto) 0.6, Baso % (Auto) 2.1 H, Neut # (Auto) 9.5 H, Lymph # (Auto) 2.9, [place] # (Auto) 1.6 H, Eos # (Auto) 0.1, Baso # (Auto) 0.3 H, ESR 102 H 06/19/22 23:55: Sodium 140, Potassium 3.9, Chloride 107, Carbon Dioxide 20 L, Anion Gap 16.9 H, BUN 15, Creatinine 1.50 H, Estimated Creat Clear 39, Estimated GFR 37 L, Est GFR ( Amer) 45 L, Glucose 178 H, Calcium 8.1 L, Magnesium 1.6, Troponin I 0.64 H, C-Reactive Protein 88.5 H, Amylase 104, Lipase 63, Procalcitonin 6.74 H, TSH 1.03, Thyroxine (T4) 6.1, Total Valproic Acid 27.1 L 06/19/22 23:55: SARS-CoV-2 (PCR) Not detected, Influenza A Untype (PCR) Not detected, Influenza Type B (PCR) Not detected 06/20/22 00:00: Specimen Source Left radial, O2 % 100%, ABG pH 7.36, ABG pCO2 31.6 L, ABG pO2 93.7, ABG HCO3 17.5 L, ABG Total CO2 18.5 L, ABG O2 Saturation 97, ABG Base Excess -7.9 L, Po Test Patient unable, Vent Rate 20, Tidal Volume 440, PEEP 5 06/20/22 03:35: Troponin I 1.01 H 10/04/22 03:35: Lactate 3.1 H 06/20/22 05:48: Specimen Source R radial, O2 % 40, ABG pH 7.42, ABG pCO2 31.0 L, ABG pO2 82.7, ABG HCO3 19.5 L, ABG Total CO2 20.4 L, ABG O2 Saturation 96, ABG Base Excess -5.1 L, Po Test Acceptable, Vent Rate 20, Tidal Volume 440, PEEP 5 Medical History: Medical History (Updated 06/20/22 @ 03:26 by Venkatesh Torres DNP) Abnormal EKG Dizziness Dyspnea Edema Seizure Seizure Assessment and Plan Assessment and plan all Dx Assessment and Plan for all problems:: Pharmacokinetic dosing service Age: 51 yo Serum creatinine: 1.5 mg/dL Height: 64.2 Inches Weight (kg): 113.5 Assessment: IBW (kg): 55.16 Dosing wt(kg): 113.5
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
[2022-06-20 08:58] LABS: Basophils # 0.2 K/mm3 (0-0.2); Basophils % 1.1 % (0.1-2.0); Eosinophils # 0.1 K/mm3 (0.0-0.4); Eosinophils % 0.5 % (0.1-12.0); Hematocrit 40.2 % (37.0-47.0); Lymphocytes % 8.2 % (10-50); Mean Corpuscular HGB Conc 32.2 g/dL (31.8-35.4); Mean Corpuscular Volume 102.6 fl (81-99); Mean Platelet Volume 8.3 fl (7.4-10.4); Neutrophils # 10.5 K/mm3 (1.8-7.8); Neutrophils % 82.2 % (37.0-80.0); Platelet Count 73 K/mm3 (142-424); Red Blood Count 3.92 M/mm3 (4.20-5.40); Red Cell Distribution Width 13.7 % (11.5-17.5); White Blood Count 12.8 K/mm3 (4.8-10.8)
[2022-06-20 09:02] LABS: Chloride 110 mmol/L (98-107); Sodium 141 mmol/L (136-145)
[2022-06-20 09:03] LABS: Potassium 3.6 mmoL/L (3.5-5.1)
[2022-06-20 09:05] LABS: Alanine Aminotransferase 86 U/L (12-78); Alkaline Phosphatase 116 U/L (38-126); Anion Gap 11.6 mEq/L (5-15); Aspartate Amino Transferase 136 U/L (14-36); Blood Urea Nitrogen 19 mg/dl (7-17); Carbon Dioxide 23 mmol/L (22.0-30.0); Creatinine Clearance Estimated 45 mL/min (50-200); Estimated Glomerular Filt Rate 44 ml/min (>60); GFR (African American) 53 ML/MIN (>60); Glucose 94 mg/dl (74-100); Lactic Acid Follow up (RFLX 2) 1.9 mmol/L (0.7-2.1)
[2022-06-20 09:06] LABS: Albumin Level 3.1 g/dl (3.5-5.0); Calcium 7.3 mg/dl (8.4-10.2); Globulin 3.2 g/dL (1.3-3.2); Magnesium 1.8 mg/dl (1.6-2.3); Total Protein,Serum 6.3 g/dl (6.3-8.2)
[2022-06-20 09:07] LABS: Bilirubin,Total 0.1 mg/dl (0.2-1.3)
[2022-06-20 09:09] LABS: Phosphorous 1.6 mg/dl (2.5-4.5)
--- NOTE | 2022-06-20 09:12 | PC.NURSE ---
received call from lab reporting Phos 1.6. Name and verified. Dr. Joseph updated.
--- NOTE | 2022-06-20 09:52 | CA_ITS ---
FINAL REPORT TECHNIQUE: Color Doppler, duplex Doppler and compression sonography of the right lower extremity venous system was performed. CLINICAL HISTORY: Redness and swelling, Septic shock sedated intubated. Cellulitis appearance. FINDINGS: There is no evidence of deep venous thrombosis from the level of the groin to the calf. The veins are patent and compressible. There is an enlarged right inguinal node which is nonspecific, may be reactive. IMPRESSION: No evidence of deep venous thrombosis right lower extremity. Reviewed, Interpreted and Dictated by James Friedman III, MD Transcribed by Ewa Christina Authenticated and [facility]
[2022-06-20 10:06] LABS: Amphetamine/Metha Screen,Urine Negative ng/ml (<1000)
[2022-06-20 10:07] LABS: Benzodiazepines Screen,Urine Negative ng/ml (<200)
[2022-06-20 10:08] LABS: Cannabinoid Screen,Urine Negative ng/ml (<50); Cocaine Screen,Urine Negative ng/ml (<300)
[2022-06-20 10:09] LABS: Methadone Screen,Urine Negative ng/ml (<300)
[2022-06-20 10:10] LABS: Opiate Screen,Urine Negative ng/ml (<300)
[2022-06-20 10:11] LABS: Phencyclidine Screen,Urine Negative ng/ml (<25)
[2022-06-20 10:24] LABS: Barbiturates Screen,Urine Negative ng/ml (<200)
--- NOTE | 2022-06-20 10:30 | DIET.NUTRFU ---
RD rounded with provider today, goal is to wean of vent today if tolerates. Currently on propol and vent for respiratory failure. NPO status, if not able to wean off vent will recommended enteral nutrition. Lives at [place] and admitted post seizure event. Dextrose provided 06/20 to help with hydration and caloric intake. Will continue to monitor nutritional needs/status
--- NOTE | 2022-06-20 11:52 | EXP.ACUTE.PN ---
Subjective *Date: 06/20/22 *Time: 17:22 Interval history: Family at bedside on morning rounds including sister and [id number]. Extensive discussion about patient's septic shock, continued sedation and ventilator needs. Patient is tolerating wean on ventilator to FiO2 of 40%. Discussed weaning sedation this morning. Patient remains afebrile. Pupils reactive on exam, not following commands however. No interaction with the vent. Afebrile on rounds. Medical Exam Vital signs and Labs for Last 24 Hours: Temp Pulse Resp BP Pulse Ox FiO2 100.8 F H 93 H 20 91/60 L 96 40 06/20/22 08:00 06/20/22 11:00 06/20/22 11:00 06/20/22 11:00 06/20/22 11:00 06/20/22 11:00 Laboratory Results - last 24 hr 06/19/22 22:48: Specimen Source Left radial, O2 % 100%, ABG pH 7.44, ABG pCO2 28.8 L, ABG pO2 60.7 L, ABG HCO3 19.0 L, ABG Total CO2 19.9 L, ABG O2 Saturation 92, ABG Base Excess -5.2 L, Po Test Patient unable 06/19/22 22:52: Urine Color Yellow, Urine Appearance Clear, Urine pH 6.0, Ur Specific [place] 1.025, Urine Protein Negative, Urine Glucose (UA) Negative, Urine Ketones Negative, Urine Blood Negative, Urine Nitrate Negative, Urine Bilirubin Negative, Urine Urobilinogen 0.2, Ur Leukocyte Esterase Negative, Urine RBC None, Urine WBC Occasional, Ur Squamous Epith Cells Occasional, Urine Bacteria None 06/19/22 22:52: Lactate 7.1 H 06/19/22 22:52: Urine Opiates Screen Negative, Urine Methadone Screen Negative, Ur Barbituates Screen Negative, Ur Phencyclidine Scrn Negative, Ur Amphetamines Screen Negative, U Benzodiazepines Scrn Negative, Urine Cocaine Screen Negative, U Marijuana (THC) Screen Negative 06/19/22 23:55: WBC 14.3 H, RBC 4.04 L, Hgb 13.1, Hct 41.6, MCV 103.0 H, MCH 32.4 H, MCHC 31.5 L, RDW 13.6, Plt Count 200, MPV 8.3, Neut % (Auto) 66.3, Lymph % (Auto) 20.0, [place] % (Auto) 11.0 H, Eos % (Auto) 0.6, Baso % (Auto) 2.1 H, Neut # (Auto) 9.5 H, Lymph # (Auto) 2.9, [place] # (Auto) 1.6 H, Eos # (Auto) 0.1, Baso # (Auto) 0.3 H, ESR 102 H 06/19/22 23:55: Sodium 140, Potassium 3.9, Chloride 107, Carbon Dioxide 20 L, Anion Gap 16.9 H, BUN 15, Creatinine 1.50 H, Estimated Creat Clear 39, Estimated GFR 37 L, Est GFR ( Amer) 45 L, Glucose 178 H, Calcium 8.1 L, Magnesium 1.6, Troponin I 0.64 H, C-Reactive Protein 88.5 H, Amylase 104, Lipase 63, Procalcitonin 6.74 H, TSH 1.03, Thyroxine (T4) 6.1, Total Valproic Acid 27.1 L 06/19/22 23:55: SARS-CoV-2 (PCR) Not detected, Influenza A Untype (PCR) Not detected, Influenza Type B (PCR) Not detected 06/20/22 00:00: Specimen Source Left radial, O2 % 100%, ABG pH 7.36, ABG pCO2 31.6 L, ABG pO2 93.7, ABG HCO3 17.5 L, ABG Total CO2 18.5 L, ABG O2 Saturation 97, ABG Base Excess -7.9 L, Po Test Patient unable, Vent Rate 20, Tidal Volume 440, PEEP 5 06/20/22 03:35: Troponin I 1.01 H 06/20/22 03:35: Lactate 3.1 H 06/20/22 05:48: Specimen Source R radial, O2 % 40, ABG pH 7.42, ABG pCO2 31.0 L, ABG pO2 82.7, ABG HCO3 19.5 L, ABG Total CO2 20.4 L, ABG O2 Saturation 96, ABG Base Excess -5.1 L, Po Test Acceptable, Vent Rate 20, Tidal Volume 440, PEEP 5 06/20/22 08:45: WBC 12.8 H, RBC 3.92 L, Hgb 13.0, Hct 40.2, MCV 102.6 H, MCH 33.0 H, MCHC 32.2, RDW 13.7, Plt Count 73 L D, MPV 8.3, Neut % (Auto) 82.2 H, Lymph % (Auto) 8.2 L, [place] % (Auto) 8.0, Eos % (Auto) 0.5, Baso % (Auto) 1.1, Neut # (Auto) 10.5 H, Lymph # (Auto) 1.0, [place] # (Auto) 1.0, Eos # (Auto) 0.1, Baso # (Auto) 0.2 06/20/22 08:45: Sodium 141, Potassium 3.6, Chloride 110 H, Carbon Dioxide 23, Anion Gap 11.6, BUN 19 H D, Creatinine 1.30 H, Estimated Creat Clear 45, Estimated GFR 44 L, Est GFR ( Amer) 53 L, Glucose 94 D, Calcium 7.3 L, Phosphorus 1.6 L, Magnesium 1.8 D, Total Bilirubin 0.1 L, AST 136 H, ALT 86 H, Alkaline Phosphatase 116, Total Protein 6.3, Albumin 3.1 L, Globulin 3.2, Albumin/Globulin Ratio 1.0 L 06/20/22 08:45: Lactate 1.9 I & O for Labs for Last 24 Hours: Intake & Output 06/17/22 06/18/22 06/19/22 06/20/22 23:59 23:59 23:59 23:59 Int
[2022-06-20 12:51] LABS: Prothrombin Time 11.8 seconds (10.1-12.5)
--- NOTE | 2022-06-20 13:15 | PC.NURSE ---
RESP CARE NOTE: Attempted a Spontaneous Breathing trial with ventilator modes. Patient eventually began breathing after 45 seconds, with tidal volumes of consistently 300 ml and rate averaging 15 bpm. She does open eyes when stimulated, but does not follow commands or instructions. Patient placed back into A/C mode and will reattempt a breathing trial later. Will continue to monitor patient.
[2022-06-20 13:27] LABS: Lactate Dehydrogenase 352 U/L (313-618)
--- NOTE | 2022-06-20 13:40 | PC.NURSE ---
Propofol gtt turned OFF
--- NOTE | 2022-06-20 15:02 | HMH.PHAINT1 ---
Pharmacy Intervention Comments: Home medication reconciliation completed using outpatient pharmacy list and MAR from [facility].
--- NOTE | 2022-06-20 15:15 | PC.NURSE ---
received call from lab reporting Troponin 0.46. Name and verified. Dr. Joseph updated.
[2022-06-20 15:16] LABS: Troponin I 0.46 ng/ml (0.00-0.034)
--- NOTE | 2022-06-20 17:00 | PC.NURSE ---
Pt following commands by sticking out tongue, lifting head off of the bed, squeezing hands, nodding head yes and no, and trying to talk. Dr. Joseph notified. New order received to switch vent to SBT in attempt to extubate. Pt's mother is @ BS
[2022-06-20 18:10] LABS: ABG Base Excess -5.3 mmol/L (-2.4-2.3); ABG HCO3 19.1 mmhg (22.0-26.0); ABG Oxygen Saturation 97 % (90-100); ABG PCO2 29.5 mmhg (35.0-45.0); ABG PH 7.43 mmol/L (7.35-7.45); ABG PO2 87.1 mmhg (80-100)
[2022-06-20 18:13] LABS: Allen's Test Patient Unable; Oxygen 35 %; PEEP 5; Pressure Support 10; Source Left Radial
--- NOTE | 2022-06-20 18:30 | PC.NURSE ---
Dr. Joseph @ BS. ABG results reviewed. Pt continues to follow commands. Pt extubated to 2L NC. Family @ BS. Levo gtt continues @ 3mcg/min. Current BP 90/47 (61).
--- NOTE | 2022-06-20 20:34 | PC.NURSE ---
2030 bedside swallow eval done, CHRIS Riddle notified that patient passed bedside swallow, stated she would put in a diet
[2022-06-21] VITALS (24 sets, daily range): BP systolic 92–155; BP diastolic 51–84; PULSE 82–100; RESP 12–20; TEMP 36.5–37; O2SAT 91–100; BMI 42.3
--- NOTE | 2022-06-21 03:09 | PC.NURSE ---
pt c/o h/a at this time. spoke with hospitalist kavya regarding pts existing order of Tylenol for fever. stated OK to give Tylenol on nov for h/a.
--- NOTE | 2022-06-21 03:54 | PC.NURSE ---
PT USED CALL LIGHT AT THIS TIME. PT REQUESTED TV TO BE TURNED OFF SO SHE COULD GO TO SLEEP. REPORTS HER H/A IS BETTER
--- NOTE | 2022-06-21 05:09 | PC.NURSE ---
at beginning of shift pt was only alert to person, she is now a&oX4. she has delayed verbal reactions but follows commands well. Pt passed bedside swallow test at 1999 this shift, was able to swallow water w/o difficulty or signs of aspiration. Levophed gtt infusing at 3 mcg/min. MAP remains > 65. Pt remains NSR on tele and HR has been 83-91 so far this shift. +2 non-pitting edema noted to BLE. Rhonchi, Wheezes, and diminished LS auscultated this shift. Pt has remained on 2L NC t/o the night and O2 sats have remained between 92-97%. Pt had a large soft BM this shift. Reihc cath in place draining clear/yellow urine. pt has had 1,655 ml UO so far this shift. Scabbed and open areas noted to R foot and R middle finger. Red and warm area noted to RLE, traced with marker. Petechiae noted to LLE (Hospitalist Venkatesh eid). Bed alarm on and functioning, seizure pads in place, call light within reach.
--- NOTE | 2022-06-21 06:01 | XR_ITS ---
PROCEDURE INFORMATION: Exam: XR Chest Exam date and time: 06/21/2022 5:26 AM Age: 51 years old Clinical indication: Device placement; Ett placement (vent status); Patient HX: Extubated 06/20/22; Additional info: Intubation TECHNIQUE: Imaging protocol: Radiologic exam of the chest. Views: 1 view. COMPARISON: CR XR CHEST PORTABLE 06/19/2022 11:25 PM FINDINGS: Lungs: Mild right perihilar atelectasis. Otherwise, no focal airspace consolidation. Pleural spaces: Unremarkable. No pleural effusion. No pneumothorax. Heart/Mediastinum: Unremarkable. No cardiomegaly. Bones/joints: Unremarkable. IMPRESSION: Mild right perihilar atelectasis. Otherwise, no acute findings.
[2022-06-21 06:30] LABS: Chloride 111 mmol/L (98-107); Potassium 3.6 mmoL/L (3.5-5.1); Sodium 143 mmol/L (136-145)
[2022-06-21 06:31] LABS: INR 1.24 (0.9-1.1); Prothrombin Time 13.2 seconds (10.1-12.5)
[2022-06-21 06:33] LABS: Alanine Aminotransferase 161 U/L (12-78); Albumin Level 2.8 g/dl (3.5-5.0); Alkaline Phosphatase 111 U/L (38-126); Anion Gap 10.6 mEq/L (5-15); Aspartate Amino Transferase 272 U/L (14-36); Blood Urea Nitrogen 15 mg/dl (7-17); Calcium 7.3 mg/dl (8.4-10.2); Carbon Dioxide 25 mmol/L (22.0-30.0); Creatinine Clearance Estimated 73 mL/min (50-200); Estimated Glomerular Filt Rate 76 ml/min (>60); GFR (African American) 92 ML/MIN (>60); Globulin 2.7 g/dL (1.3-3.2); Glucose 122 mg/dl (74-100); Magnesium 1.9 mg/dl (1.6-2.3); Total Protein,Serum 5.5 g/dl (6.3-8.2)
[2022-06-21 06:44] LABS: Bilirubin,Total < 0.1 mg/dl (0.2-1.3)
[2022-06-21 06:53] LABS: Basophils # 0.1 K/mm3 (0-0.2); Basophils % 0.4 % (0.1-2.0); Eosinophils % 0.1 % (0.1-12.0); Hematocrit 36.5 % (37.0-47.0); Hemoglobin 11.8 g/dL (12.2-16.2); Lymphocytes # 1.6 K/mm3 (0.7-4.5); Mean Corpuscular HGB Conc 32.2 g/dL (31.8-35.4); Mean Corpuscular Hemoglobin 33.2 pg (27.0-31.2); Mean Corpuscular Volume 102.9 fl (81-99); Mean Platelet Volume 10.3 fl (7.4-10.4); Monocytes # 1.4 K/mm3 (0.1-1.0); Monocytes % 7.3 % (1.7-9.3); Neutrophils # 16.5 K/mm3 (1.8-7.8); Neutrophils % 84.2 % (37.0-80.0); Red Blood Count 3.55 M/mm3 (4.20-5.40); Red Cell Distribution Width 13.9 % (11.5-17.5); White Blood Count 19.6 K/mm3 (4.8-10.8)
[2022-06-21 07:29] LABS: Platelet Count 42 K/mm3 (142-424)
[2022-06-21 07:31] LABS: MANUAL DIFFERENTIAL MANUAL DIFFERENTIAL (MANUAL DIFF)
[2022-06-21 07:32] LABS: Lymphocytes % 12 % (10-50); Monocytes % 10 % (2-9); Neutrophils % 78 % (42-76); Total Cells Counted 100
[2022-06-21 07:33] LABS: Platelet Estimate Marked Decrease; RBC Morphology Normal
[2022-06-21 07:42] LABS: Phosphorous 3.2 mg/dl (2.5-4.5)
--- NOTE | 2022-06-21 09:14 | US_ITS ---
FINAL REPORT CLINICAL HISTORY: ruq pain-- doppler flow also FINDINGS: Sonographic images of the right upper quadrant were obtained. The pancreas is partially obscured.The liver has an unremarkable appearance.The gallbladder appears normal without evidence of gallstones. There is sludge in the gallbladder. There is no evidence of biliary ductal dilatation.The common duct measures 2 mm. Limited images of the right kidney are unremarkable. IMPRESSION: Sludge in the gallbladder. Reviewed, Interpreted and Dictated by James Friedman III, MD Transcribed by Govind Hernandez Authenticated and [facility]
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
[2022-06-21 10:12] LABS: Erythrocyte Sedimentation Rate 56 mm/hr (0-20)
--- NOTE | 2022-06-21 10:32 | PC.NURSE ---
PT IS SITTING UP IN THE CHAIR. ALERT AND ORIENTED X3. IV ACCESS TO THE JOLEEN INFILTRATED AND IV ACCESS TO THE RAC WAS LEAKING. ATTEMPTED NEW IV ACCESS X2 (UNSUCCESSFUL). WILL ATTEMPT US GUIDED IV.
--- NOTE | 2022-06-21 11:35 | HMH.PTEV ---
Physical Therapy Evaluation Rehab PT IP Evaluation Start: 06/21/22 10:06 Freq: ONCE Status: Active Protocol: Document 06/21/22 11:32 [facility]OR[facility] (Rec: 06/21/22 11:35 [facility] [id number]) Subjective/History History History 51 yowf adm to [facility] after found down at personal [facility] with possible seizure and sepsis. She reports she was independent with all ADLs and mobility prior to adm. Subjective Subjective No c/o this am. Rehab PT IP Eval Objective Appearance Patient Behavior Appropriate Patient Orientation Person,Place Difficulty following instructions none Speech Pattern Clear,Delayed Ambulation Patient Able to Ambulate Yes Ambulation Observation IP General Gait Pattern Observation Shuffling Step Ambulation Distance (feet) 3 Ambulation Assistive Device None Ambulation Ability Minimal x 1 (25% assist) Balance Ability to Arise Able, uses arms to help Sitting Balance Steady, safe Standing Balance Steady, wide stance Dynamic Sitting Balance Ability Good Dynamic Standing Balance Ability Fair Transfers Bed Transfer Ability Minimal x 1 (25% assist) Chair Transfer Ability Minimal x 1 (25% assist) Sit to Stand Bed Transfer Ability Minimal x 1 (25% assist) Sit to Stand Chair Transfer Ability Minimal x 1 (25% assist) Rehab PT IP prob,goals,plan Problems Date of Evaluation: 06/21/22 PT IP Problems Bed Mobility,Transfers,Gait, Balance,Self care Rehab Potential Rehab Potential Good Plan PT Intervention Plan Bed Mobility,Transfers,Gait, Balance,Self care,Safety, Therapeutic Exercise PT Plan Frequency BID Duration LOS Discharge Goals Bed Transfer Ability Contact Guard/Hand Hold Sit to Stand Chair Transfer Ability Contact Guard/Hand Hold Ambulation Assistive Device Rolling Walker Ambulation Distance (feet) 20 Discharge Plan PT Discharge Plan Pt is most appropriate at this time for rehab placement due to generalized weakness and poor mobility. G -code Required No Eval Complexity Eval Charge Codes 91722 - Moderate Complexity PHYSICIAN CERTIFICATION: I certify the specified therapy services for Jillian Cosme are required, authorized, and reviewed every 30 days.
--- NOTE | 2022-06-21 11:49 | HMH.OTEV ---
OT Inpatient Evaluation Rehab OT IP Evaluation Start: 06/21/22 10:06 Freq: ONCE Status: Complete Protocol: Document 06/21/22 11:35 [facility] (Rec: 06/21/22 11:49 [facility] [id number]) Rehab OT IP Assessment Subjective History Pt oriented x 3 on arrival. Pt was admitted via ED on 06/20 due to a seizure. Prior to being in the hospital, pt was living at [facility]. Pt claims she was independent with dressing, feeding, and showering (all ADL's). However she was dependent upon staff to complete all IADLs. Pt did not use a walker during ambulation. Subjective Tired. Pt resting in chair on arrival . Pt stood from chair with cga. Pt sat back down in chair with cga. Objective Patient Orientation Person,Place,Birthday Upper Extremity Gross ROM WFL Shoulder ROM Limitations Pain Transfer Training Sit/Stand Transfer Assist Level Contact Guard/Hand Hold Rehab OT IP prob,goals,plan Problems Date of Evaluation: 06/21/22 OT IP Problems Bed Mobility,Transfers,Balance ,Self care,Safety Rehab Potential Rehab Potential Good Equipment Needs Assistive Devices Rolling / Wheeled Walker Plan OT intervention Plan Bed Mobility,Transfers,Balance ,Self care,Safety,Therapeutic Exercise OT Plan Frequency BID Duration LOS Discharge Goals Bed Mobility Ability Standby Assistance Sit to Stand Chair Transfer Ability Supervision/Stand by Chair Transfer Ability Supervision/Stand by Chair Transfer Technique Sit to/from Ambulatory Chair Transfer Assistive Devices Rolling Walker Lower Body Dressing Ability Assistance X1 Upper Body Dressing Ability Standby Assistance Bathing Ability Assistance x1 Performing Toilet Hygiene Ability Assistance X1 Overall Commode/Toilet Transfer Ability Standby Assistance Commode/Toilet Transfer Technique Sit to/from Ambulatory Discharge Plan OT Discharge Plan Pt will continue to be seen by OT services while at [facility]. Pt would benefit from short term rehab at SNF upon discharge.
[2022-06-21 11:57] LABS: Haptoglobin 294 mg/dL (42-296)
--- NOTE | 2022-06-21 12:00 | XR_ITS ---
FINAL REPORT CLINICAL HISTORY: Confirm PICC line placement COMPARISON: Earlier the same day FINDINGS: A single portable view of the chest was obtained. A right-sided PICC line is present with the tip in the upper SVC. The heart size and pulmonary vascularity are within normal limits. The mediastinum is within normal limits. There are persistent bibasilar opacities which may represent pneumonia or atelectasis. The bony thorax is intact. IMPRESSION: Right sided PICC line is present with tip in the upper SVC. Persistent bibasilar pneumonia or atelectasis. Reviewed, Interpreted and Dictated by James Friedman III, MD Transcribed by Martine Miller Authenticated and [facility]
[2022-06-21 12:10] LABS: C-Reactive Protein 128.3 mg/L (0-4)
--- NOTE | 2022-06-21 12:28 | PC.NURSE ---
NOTIFIED [facility] FOR PERMISSION TO DO A PICC INSERTION. CINTIA HOLDER AND DAVIDSON RN AT BEDSIDE TO ATTEMPT PICC PLACEMENT AT THIS TIME.
--- NOTE | 2022-06-21 13:24 | SW/DCPLANNER ---
Addendum entered by Mila Venetie 06/23/22 09:34: The plan for this patient is to return to [facility] today w/ outpatient PT at [facility] and oral antibiotics. I have updated Mansi peterson/ [facility] and VM has been left for patient's State Guardian. Addendum entered by Mila Venetie 06/22/22 11:27: Currently Jossy peterson/ [facility] is able to accept this patient if a higher level of care is needed at discharge. However if patient does not need IV antibiotics and is back to baseline with PT at time of discharge then patient could return to [facility]. I will keep in contact with Grace Gonzales MD and Guardian. Addendum entered by Mila Venetie 06/22/22 09:47: Patient information has also been faxed to Hawa peterson/ [facility]. Addendum entered by Mila Venetie 06/22/22 08:43: Shila peterson/ [facility] can not accept this patient at this time. [facility] and [facility] [place] are still reviewing patient information. Addendum entered by Mila Venetie 06/21/22 13:33: Jonas has stated that he is no longer the State Guardian for this patient (Guardian is Addis [facility] [phone]). However, Jonas stated that Addis is out and he does give consent to start the placement process for this patient. Patient information will be faxed to Jossy peterson/ [facility] and Maria R peterson/ [facility]. I have also reached out to Shila peterson/ [facility]. Original Note: Prior to hospital admission patient resided at [facility]. Per PT/OT evaluation completed today patient will need a higher level of care before returning back to [facility]. I have attempted to contact patient's Guardian (Jonas Rushing): no answer/ VM left at this time.
--- NOTE | 2022-06-21 15:40 | PC.NURSE ---
1235- Spoke to MD Joseph regarding platelet count before placing PICC line. MD ramsey with platelet count of 42. Will proceed with PICC line at this time.
--- NOTE | 2022-06-21 17:53 | PC.NURSE ---
PT IS RESTING IN BED. TOLERATED SITTING UP IN THE CHAIR FOR SEVERAL HOURS THIS SHIFT. ALERT AND ORIENTED X3. PT HAS BEEN VERY COOPERATIVE THIS SHIFT WITH ANSWERING QUESTIONS AND FOLLOWING COMMANDS. EATING AND DRINKING WELL. PT IS A 2 ASSIST WITH TRANSFERS. SEVERE RLE WEAKNESS. PT HAS SWELLING/REDNESS NOTED TO THE RLE. DRY/SCALY/OOZING LESIONS NOTED TO THE FOOT. DRY SCALY LESION NOTED TO THE RIGHT MIDDLE FINGER. DOUBLE LUMEN PICC NOTED TO THE [place]RA[place]. 1700 BP 129/69. HR 93. RESPIRATIONS 18. O2 SATURATION 94-97% ON ROOM AIR. PT HAS BEEN OFF THE LEVOPHED DRIP SINCE 1030 THIS MORNING . CATHETER WAS DC'D AT 1645. WILL CONTINUE TO MONITOR.
[2022-06-22] VITALS (15 sets, daily range): BP systolic 111–159; BP diastolic 64–86; PULSE 64–98; RESP 15–20; TEMP 36.6–36.8; O2SAT 83–98; BMI 45.8
--- NOTE | 2022-06-22 03:15 | PC.NURSE ---
0313 was noted that pt had run of svt HR 177 lasted about 8 seconds, pt asymptomatic, pt needed to void at this time, assisting up to bsc and was noted 600ml of urine noted.
--- NOTE | 2022-06-22 05:24 | PC.NURSE ---
pt rested well through the night, pt had one episode of vomiting aprox 150ml, pt stated the medicine makes her sick, one time dose of zofran given with relief, RLE still swollen, red and warm to touch with lesions noted with scabs and weeping some, lesions to right finger noted to be more dry and scabby, pt did have a run of vtach around 0313 with hr up to 177, pt was asymptomatic and needing to void at this time, b/p has remained stable with maps 86-107, sbp 111-155; pt voiding without difficulty, pt up to bsc with assist x2, pt with severe weakness to RLE, walker placed in room for weight bearing when ambulating, pt seemed to pivot better with walker, picc line intact and patent to rue, pt is alert and oriented x3, pt was confused to place and time, telemetry reveals NSR to sinus tach, pt in no acute distress, no other issues or concerns at this time.
[2022-06-22 06:00] LABS: Basophils # 0.2 K/mm3 (0-0.2); Basophils % 1.2 % (0.1-2.0); Hematocrit 33.5 % (37.0-47.0); Hemoglobin 10.7 g/dL (12.2-16.2); Lymphocytes # 1.3 K/mm3 (0.7-4.5); Mean Corpuscular Hemoglobin 32.8 pg (27.0-31.2); Mean Corpuscular Volume 102.6 fl (81-99); Mean Platelet Volume 10.5 fl (7.4-10.4); Monocytes # 0.7 K/mm3 (0.1-1.0); Monocytes % 4.2 % (1.7-9.3); Neutrophils # 15.7 K/mm3 (1.8-7.8); Neutrophils % 87.5 % (37.0-80.0); Platelet Count 55 K/mm3 (142-424); Red Blood Count 3.27 M/mm3 (4.20-5.40); Red Cell Distribution Width 13.9 % (11.5-17.5); White Blood Count 17.9 K/mm3 (4.8-10.8)
[2022-06-22 06:04] LABS: MANUAL DIFFERENTIAL MANUAL DIFFERENTIAL (MANUAL DIFF)
[2022-06-22 06:08] LABS: Chloride 109 mmol/L (98-107); Potassium 3.7 mmoL/L (3.5-5.1); Sodium 142 mmol/L (136-145)
[2022-06-22 06:10] LABS: Blood Urea Nitrogen 9 mg/dl (7-17); Creatinine Clearance Estimated 84 mL/min (50-200); Estimated Glomerular Filt Rate 89 ml/min (>60); GFR (African American) 108 ML/MIN (>60)
[2022-06-22 06:11] LABS: Alanine Aminotransferase 142 U/L (12-78); Albumin Level 2.8 g/dl (3.5-5.0); Albumin/Globulin Ratio 0.9 (1.1-1.8); Alkaline Phosphatase 96 U/L (38-126); Anion Gap 8.7 mEq/L (5-15); Aspartate Amino Transferase 257 U/L (14-36); Calcium 7.2 mg/dl (8.4-10.2); Carbon Dioxide 28 mmol/L (22.0-30.0); Glucose 140 mg/dl (74-100); Magnesium 2.1 mg/dl (1.6-2.3); Total Protein,Serum 5.8 g/dl (6.3-8.2)
[2022-06-22 06:15] LABS: Bilirubin,Total < 0.1 mg/dl (0.2-1.3)
[2022-06-22 08:14] LABS: Lymphocytes % 7 % (10-50); Macrocytosis 1+; Monocytes % 4 % (2-9); Neutrophils % 89 % (42-76); Total Cells Counted 100
[2022-06-22 08:16] LABS: Platelet Estimate Marked Decrease
[2022-06-22 09:34] LABS: Chloride 110 mmol/L (98-107); Potassium 3.6 mmoL/L (3.5-5.1); Sodium 143 mmol/L (136-145)
[2022-06-22 09:37] LABS: Anion Gap 9.6 mEq/L (5-15); Blood Urea Nitrogen 9 mg/dl (7-17); Calcium 7.4 mg/dl (8.4-10.2); Carbon Dioxide 27 mmol/L (22.0-30.0); Creatinine Clearance Estimated 84 mL/min (50-200); Estimated Glomerular Filt Rate 89 ml/min (>60); GFR (African American) 108 ML/MIN (>60); Glucose 144 mg/dl (74-100)
[2022-06-22 09:45] LABS: Vancomycin,Trough 17.2 ug/mL (5.0-10.0)
--- NOTE | 2022-06-22 10:53 | EXP.ACUTE.PN ---
Subjective *Date: 06/22/22 *Time: 12:46 Interval history: Ms. Cosme states she had an episode of nausea overnight, got better with some Zofran. Is tolerating good p.o. intake. Has been able to wean off of supplemental oxygen and has been on room air for at least 24 hours. Remains afebrile and hemodynamically stable for the past 24 hours. Denies chest pain, shortness of breath, diarrhea, headache. Leg pain improving. Getting up with therapy, ambulating to bathroom. Shuffling gait and using assistive devices appears to be at her baseline from talking to patient further. She states she uses furniture to hold onto if she walks around in her home setting. complete review of systems performed, pertinent positives and negatives as per above. Medical Exam Vital signs and Labs for Last 24 Hours: Temp Pulse Resp BP Pulse Ox FiO2 98.1 F 92 H 18 123/70 95 35 06/22/22 08:11 06/22/22 08:00 06/22/22 08:00 06/22/22 08:00 06/22/22 08:00 06/20/22 18:00 Laboratory Results - last 24 hr 06/20/22 12:26: Haptoglobin 294 06/21/22 05:28: C-Reactive Protein 128.3 H 06/22/22 05:40: WBC 17.9 H, RBC 3.27 L, Hgb 10.7 L, Hct 33.5 L, MCV 102.6 H, MCH 32.8 H, MCHC 32.0, RDW 13.9, Plt Count 55 L D, MPV 10.5 H, Neut % (Auto) 87.5 H, Lymph % (Auto) 7.0 L, [place] % (Auto) 4.2, Eos % (Auto) 0.0 L, Baso % (Auto) 1.2, Neut # (Auto) 15.7 H, Lymph # (Auto) 1.3, [place] # (Auto) 0.7, Eos # (Auto) 0.0, Baso # (Auto) 0.2, Total Counted 100, Neutrophils % (Manual) 89 H, Lymphocytes % (Manual) 7 L, Monocytes % (Manual) 4, Platelet Estimate Marked decrease, Macrocytosis 1+ 06/22/22 05:40: Sodium 142, Potassium 3.7, Chloride 109 H, Carbon Dioxide 28, Anion Gap 8.7, BUN 9 D, Creatinine 0.70, Estimated Creat Clear 84, Estimated GFR 89, Est GFR ( Amer) 108, Glucose 140 H, Calcium 7.2 L, Magnesium 2.1 D, Total Bilirubin < 0.1 L, AST 257 H, ALT 142 H, Alkaline Phosphatase 96, Total Protein 5.8 L, Albumin 2.8 L, Globulin 3.0, Albumin/Globulin Ratio 0.9 L 06/22/22 09:10: Vancomycin Trough 17.2 H 06/22/22 09:10: Sodium 143, Potassium 3.6, Chloride 110 H, Carbon Dioxide 27, Anion Gap 9.6, BUN 9, Creatinine 0.70, Estimated Creat Clear 84, Estimated GFR 89, Est GFR ( Amer) 108, Glucose 144 H, Calcium 7.4 L I & O for Labs for Last 24 Hours: Intake & Output 06/19/22 06/20/22 06/21/22 06/22/22 23:59 23:59 23:59 23:59 Intake Total 4859.375 / 4865.375 2269 / 2269 1855 / 1855 Output Total 3455 / 3580 2080 / 2080 700 / 700 Balance 1404.375 / 1285.375 189 / 189 1155 / 1155 Weight 124.738 kg 113.5 kg 112.292 kg 121.608 kg Microbiology Reports for the Last 24 Hours: Microbiology 06/19/22 22:52 Blood - Other Blood Culture - Preliminary 06/19/22 22:52 Blood - Other Blood Culture - Preliminary Gram Positive Cocci 06/20/22 00:00 Sputum - Endotracheal Tube Aspirate Gram Stain - Final 06/20/22 00:00 Sputum - Endotracheal Tube Aspirate Sputum Culture - Preliminary 06/20/22 Unknown Hand,Right - Drainage Gram Stain - Final 06/20/22 Unknown Hand,Right - Drainage Wound Culture - Preliminary Staphylococcus aureus Gram Positive Cocci 06/20/22 01:18 Ankle,Right Gram Stain - Final 06/20/22 01:18 Ankle,Right Wound Culture - Preliminary Gram Positive Cocci Gram Positive Cocci#2 Head: Present atraumatic and normocephalic Comment:: ETT in place, NG in left nare. MMM, PERRLA Neck: Present normal inspection Respiratory: Present CTA bilaterally; Absent rhonchi, wheezes or crackles Cardiac: Present Reg Rate and Rhythm and S1/S2; Absent No Murmur GI: Present soft and normal bowel sounds; Absent distention, tenderness or guarding Rectal (female): Present deferred (female): Present deferred Comment:: kimbrough in place Extremities: Present edema (trace) Comment:: RLE with scabbing and lesions on right foot,
--- NOTE | 2022-06-22 11:31 | EXP.PHA.CONS ---
Pharmacy Consult Date: 06/22/22 Time: 11:31 Referring provider: DR. CARRENO Reason for Consult:: VANCOMYCIN LEVEL Allergies Allergy/AdvReac Type Severity Reaction Status Date / Time azithromycin Allergy Verified 06/20/22 02:26 Home Medications Medication Instructions Recorded Confirmed Type acetaminophen 500 mg tablet 500 mg PO Q6H PRN pain 09/15/20 06/20/22 History aspirin 81 mg tablet,delayed 81 mg PO DAILY Blood thinner 09/15/20 06/20/22 History release divalproex 250 mg tablet,delayed 250 mg PO TID seizures 09/15/20 06/20/22 History release (Depakote) escitalopram oxalate 20 mg tablet 20 mg PO DAILY Anxiety 09/15/20 06/20/22 History nortriptyline 25 mg capsule 25 mg PO HS Depression 09/15/20 06/20/22 History sennosides 8.6 mg tablet (Senna 17.2 mg PO DAILY constipation 09/15/20 06/20/22 History Lax) sodium chloride-aloe vera nasal 1 applic topical HS PRN NASAL 11/22/20 06/20/22 Rx gel ([place] Saline nasal gel) IRRITATION #14.1 grams metoprolol succinate 50 mg 50 mg PO DAILY blood pressure 06/28/21 06/20/22 History tablet,extended release 24 hr aripiprazole 10 mg tablet 10 mg PO HS Depression 08/18/21 06/20/22 History prednisone 20 mg tablet 60 mg PO DAILY #15 tabs 06/17/22 06/20/22 Rx New Prescriptions to Start Prescriptions: Height: 1.63 m Weight: 121.608 kg Laboratory Results:: Laboratory Results - last 24 hr 06/20/22 12:26: Haptoglobin 294 06/21/22 05:28: C-Reactive Protein 128.3 H 06/22/22 05:40: WBC 17.9 H, RBC 3.27 L, Hgb 10.7 L, Hct 33.5 L, MCV 102.6 H, MCH 32.8 H, MCHC 32.0, RDW 13.9, Plt Count 55 L D, MPV 10.5 H, Neut % (Auto) 87.5 H, Lymph % (Auto) 7.0 L, [place] % (Auto) 4.2, Eos % (Auto) 0.0 L, Baso % (Auto) 1.2, Neut # (Auto) 15.7 H, Lymph # (Auto) 1.3, [place] # (Auto) 0.7, Eos # (Auto) 0.0, Baso # (Auto) 0.2, Total Counted 100, Neutrophils % (Manual) 89 H, Lymphocytes % (Manual) 7 L, Monocytes % (Manual) 4, Platelet Estimate Marked decrease, Macrocytosis 1+ 06/22/22 05:40: Sodium 142, Potassium 3.7, Chloride 109 H, Carbon Dioxide 28, Anion Gap 8.7, BUN 9 D, Creatinine 0.70, Estimated Creat Clear 84, Estimated GFR 89, Est GFR ( Amer) 108, Glucose 140 H, Calcium 7.2 L, Magnesium 2.1 D, Total Bilirubin < 0.1 L, AST 257 H, ALT 142 H, Alkaline Phosphatase 96, Total Protein 5.8 L, Albumin 2.8 L, Globulin 3.0, Albumin/Globulin Ratio 0.9 L 06/22/22 09:10: Vancomycin Trough 17.2 H 06/22/22 09:10: Sodium 143, Potassium 3.6, Chloride 110 H, Carbon Dioxide 27, Anion Gap 9.6, BUN 9, Creatinine 0.70, Estimated Creat Clear 84, Estimated GFR 89, Est GFR ( Amer) 108, Glucose 144 H, Calcium 7.4 L Medical History: Medical History (Updated 06/20/22 @ 17:34 by Harshil Carreno MD) Abnormal EKG Dizziness Dyspnea Edema Seizure Seizure Assessment and Plan Assessment and plan all Dx Assessment and Plan for all problems:: BASED ON PATIENT'S VANCOMYCIN TROUGH LEVEL OF 17.2 MCG/ML THIS AM, RECOMMEND CONTINUING WITH CURRENT DOSE AND INTERVAL OF VANCOMYCIN 1750 MG Q12H AT THIS TIME.
--- NOTE | 2022-06-22 13:17 | PC.NURSE ---
Patient status changed from [place] to [facility] registration aware, spoke with Tristin Richardson
[2022-06-22 15:25] LABS: Vancomycin,Peak 39.2 ug/ml (11-39)
--- NOTE | 2022-06-22 15:36 | PC.NURSE ---
PT IS SITTING UP IN THE CHAIR. ALERT AND ORIENTED X3. PT HAS BEEN EATING AND DRINKING WELL. HAS TOLERATED BEING UP IN THE CHAIR FOR A FEW HOURS THIS SHIFT AND AMBULATING TO THE BATHROOM. PT CONTINUES TO HAVE SOME WEAKNESS HOWEVER THIS HAS IMPROVED SINCE YESTERDAY. REDNESS TO THE RLE HAS IMPROVED AND PT STATES IT IS NOT PAINFUL TODAY. PT CONTINUES TO HAVE THE SCALY LESIONS NOTED TO RIGHT FOOT AND RIGHT MIDDLE FINGER. LUNG SOUNDS CLEAR. ABDOMEN SOFT/NON TENDER WITH ACTIVE BOWEL SOUNDS. WILL CONTINUE TO MONITOR.
[2022-06-22 17:42] LABS: Peripheral Smear Review Scanned Result
--- NOTE | 2022-06-23 03:55 | PC.NURSE ---
pt has rested well this shift, did complain of nausea early in the shift and was treated per MAR, no further complains of nausea since then, lung sounds CTA, remains on room air with O2 sats 94-96%, HR 64-72, SBP 140-159, no complaints of pain or SOA
[2022-06-23 04:00] VITALS: BP 140/78; PULSE 72; RESP 16; TEMP 36.8; O2SAT 94
[2022-06-23 05:00] VITALS: BMI 45.5
[2022-06-23 06:06] LABS: Basophils # 0.3 K/mm3 (0-0.2); Basophils % 2.3 % (0.1-2.0); Eosinophils # 0.1 K/mm3 (0.0-0.4); Eosinophils % 0.7 % (0.1-12.0); Hematocrit 34.8 % (37.0-47.0); Hemoglobin 11.2 g/dL (12.2-16.2); Lymphocytes # 1.4 K/mm3 (0.7-4.5); Lymphocytes % 9.9 % (10-50); Mean Corpuscular HGB Conc 32.1 g/dL (31.8-35.4); Mean Corpuscular Hemoglobin 33.2 pg (27.0-31.2); Mean Corpuscular Volume 103.5 fl (81-99); Mean Platelet Volume 9.8 fl (7.4-10.4); Monocytes # 0.6 K/mm3 (0.1-1.0); Monocytes % 4.4 % (1.7-9.3); Neutrophils # 11.5 K/mm3 (1.8-7.8); Neutrophils % 82.6 % (37.0-80.0); Platelet Count 100 K/mm3 (142-424); Red Blood Count 3.37 M/mm3 (4.20-5.40); Red Cell Distribution Width 13.9 % (11.5-17.5); White Blood Count 13.9 K/mm3 (4.8-10.8)
--- NOTE | 2022-06-23 07:25 | EXP.DC.SUM ---
General Admission date:: 06/20/22 Discharge date: 06/23/22 HPI HPI HPI: Ms. Cosme is a 51 year old female who is a resident of a local halfway. She has a past medical history of seizure disorder. She was brought into the ER by EMS due to a fall in the shower. Per records when EMS arrived at the facility she had brown drainage coming from her nose and she was suctioned and placed on a non-rebreather. In the ER there was noted to be concern for seizure activity and the patient was obtunded. The patient was intubated for airway protection. Also in the ER the patient was found to be Febrile, Hypotensive, Tachycardia, WBC was >12,000 and she had a SBP <90. The patient was admitted with initial impression: Septic Shock. Hospital Course Hospital Course Hospital Course: 51-year-old female admitted for septic shock (POA), Cellulitis of right lower extremity secondary to impetigo, acute hypoxemic respiratory failure, compensated metabolic acidosis.? Clinically she has done well since admission. Sepsis defervesced over the first 24 to 48 hours. Able to be extubated within 24 hours of admission and gradually weaned to room air by 48 hours of admission. Able to wean off vasopressors after 48 hours of admission. Tolerating p.o. intake with intermittent mild nausea. Has worked with physical therapy and they feel she is at her baseline level of function. Overall labs have shown gradual improvement after initially developing severe thrombocytopenia and elevation in liver enzymes suspected secondary to her septic shock. No further seizures during admission. Transition to oral antibiotics. At this point she is stable for discharge back to her personal [facility] to continue antibiotics orally for an empiric course. Problems during admission addressed as follows: Sepsis, resolved Impetigo Aspiration pneumonia -Admitted on vent with Levophed for septic shock. Symptoms improved with fluid resuscitation and initiation of antibiotics. Able to wean fairly rapidly off the vent and extubate within 24 hours. Antibiotics initially broad-spectrum with vancomycin, cefepime, Flagyl. As cultures returned all showing staph, transitioned to Levaquin for pneumonia and Bactrim for cellulitis. Tolerating good p.o. intake with intermittent nausea. Suspect patient has GERD as most of her discomfort is epigastric. Initiated on pantoprazole, will continue in the outpatient setting. Complete a total of 10 days of antibiotics. At baseline level of function, stable for discharge to personal [facility]. Would benefit from physical therapy in the outpatient setting, ambulatory referral placed. Thrombocytopenia Hepatitis/transaminitis -Unclear etiology, suspected secondary to sepsis.? Platelets dropped as low as 50,000 but have gradually improved 200,000 by day of discharge. Peripheral smear obtained showing neutrophilia and anemia along with thrombocytopenia. All consistent with infection. No neoplastic process or blasts seen. No DIC, schistocytes seen either. Hepatitis panel pending. Not treated with any anticoagulation/VTE prophylaxis during admission given thrombocytopenia. Duplex of lower extremities obtained showing no DVTs.? No overt signs of bleeding during admission. Seizure disorder - No seizure since admission, initially dosed with loading dose of Keppra (2 g). Increased Depakote to 500 mg 3 times daily. Weaned back down to 250 mg 3 times a day. Needs Depakote level next week. Exam Data for Last 24 hours Vital signs and Labs for Last 24 Hours: Temp Pulse Resp BP Pulse Ox FiO2 98.2 F 72 16 140/78 94 L 35 06/23/22 04:00 06/23/22 04:00 06/23/22 04:00 06/23/22 04:00 06/23/22 04:00 06/20/22 18:00 Laboratory Results - last 24 hr 06/22/22 05:40: Total Counted 100, Neutrophils % (Manual) 89 H, Lymphocytes % (Manual) 7 L, Monocytes % (Manual) 4, Platelet Estimate Marked decrease, Macrocytosis 1+ 06/22/22 09:10: Vancomycin Trough 17.
[2022-06-23 08:00] VITALS: BP 123/69; PULSE 84; RESP 20; TEMP 36.9; O2SAT 95
--- NOTE | 2022-06-23 09:01 | DIET.NUTRFU ---
Addendum entered by Nicolle Moralez RD, LD 06/23/22 11:18: Saw patient prior to lunch, she reports she is feeling better was drinking nayeli mist at bedside. Reviewed lunch selection and agreed on grilled cheese/chicken noodle soup and yogurt. Which I encouraged to continue to help during ABT tx with good bacteria. Original Note: Patient had nausea this morning, ate 100% at all 3 meals yesterday. Breakfast only 25% d/t nausea. BM noted 06/22. She is on ABT tx which maybe cause GI distress. Provider plans to start GI cocktail to help with symptoms. Plans to discharge back to [facility] today, will continue oral ABT tx.
[2022-06-23 09:11] LABS: Chloride 107 mmol/L (98-107); Potassium 3.6 mmoL/L (3.5-5.1); Sodium 142 mmol/L (136-145)
[2022-06-23 09:14] LABS: Anion Gap 9.6 mEq/L (5-15); Blood Urea Nitrogen 7 mg/dl (7-17); Carbon Dioxide 29 mmol/L (22.0-30.0); Creatinine Clearance Estimated 98 mL/min (50-200); Estimated Glomerular Filt Rate 106 ml/min (>60); GFR (African American) 129 ML/MIN (>60)
[2022-06-23 09:15] LABS: Calcium 7.5 mg/dl (8.4-10.2); Glucose 111 mg/dl (74-100)
[2022-06-23 09:26] LABS: Peripheral Smear Review Scanned Result
[2022-06-23 10:47] LABS: Hep A Ab, IgM NEGATIVE; Hepatitis B Core Antibody IgM NEGATIVE; Hepatitis B Surface Antigen NEGATIVE
[2022-06-23 10:48] LABS: Hepatitis C Antibody <0.1
--- NOTE | 2022-06-23 12:08 | PC.NURSE ---
Report called to [facility].
--- NOTE | 2022-06-23 13:37 | SW/DCPLANNER ---
I have arranged [facility] [employer] for this patient w/ Michelle for this patient.
[2022-06-25 13:39] LABS: MRSA DNA PCR NEGATIVE
--- NOTE | 2022-06-26 13:11 | CARE MANAGER ---
Contacted Mathis who states that patient was admitted to [facility] last night. GALLO Berumen
== END 2022-06-23 14:10 | disposition home or self-care (01) | DRG 871 ==
LOC: ER 22:55 → 2ND 06-20 02:38
PROVIDERS: Nurse Practitioner Family; Admitting Provider Internal Medicine Adolescent Medicine; Emergency Provider Emergency Medicine; PCP Emergency Medicine; Visit Provider Internal Medicine Adolescent Medicine
DX: A41.9 Sepsis, unspecified organism (principal); G93.41 Metabolic encephalopathy; J69.0 Pneumonitis due to inhalation of food and vomit; J96.01 Acute respiratory failure with hypoxia; R65.21 Severe sepsis with septic shock; I21.4 Non-ST elevation (NSTEMI) myocardial infarction; L03.115 Cellulitis of right lower limb; E87.20 Acidosis, unspecified; G40.909 Epilepsy, unspecified, not intractable, without status epilepticus; D69.6 Thrombocytopenia, unspecified; K75.9 Inflammatory liver disease, unspecified; Z87.820 Personal history of traumatic brain injury
CPT/HCPCS: 94002; 31500; 36415; 36569; 51702; 70450; 71045; 72125; 72170; 80048; 80053; 80074; 80164; 80202; 80305; 81001; 82150; 82803; 83010; 83605; 83615; 83690; 83735; 84100; 84145; 84436; 84443; 84484; 85007; 85025; 85610; 85651; 85730; 86140; 87040; 87070; 87077; 87186; 87205; 87641; 93005; 93971; 93975; 95816; 96372; 97116; 97162; 97166; 97530; 99283; 99291; C1751; C9803; J0330; J1953; J2405; J2704; J3370; U0003; U0005

== ENCOUNTER 2022-06-25 07:36 | Emergency (ER) | payer MEDICAID, SELFPAY ==
[2022-06-25 07:38] VITALS: BP 127/78; PULSE 100; RESP 20; TEMP 37.4; O2SAT 99; BMI 36.6
[2022-06-25 08:00] VITALS: BP 117/77; PULSE 104; RESP 20; O2SAT 95
--- NOTE | 2022-06-25 08:16 | PC.NURSE ---
ED MD AT BEDSIDE TO EVALUATE PT
[2022-06-25 08:30] VITALS: BP 134/79; PULSE 98; RESP 20; O2SAT 95
[2022-06-25 08:38] LABS: Chloride 101 mmol/L (98-107); Sodium 138 mmol/L (136-145)
[2022-06-25 08:41] LABS: Alanine Aminotransferase 135 U/L (12-78); Albumin Level 3.4 g/dl (3.5-5.0); Alkaline Phosphatase 101 U/L (38-126); Aspartate Amino Transferase 310 U/L (14-36); Bilirubin,Total 0.3 mg/dl (0.2-1.3); Blood Urea Nitrogen 9 mg/dl (7-17); Calcium 8.2 mg/dl (8.4-10.2); Carbon Dioxide 30 mmol/L (22.0-30.0); Creatinine Clearance Estimated 134 mL/min (50-200); Estimated Glomerular Filt Rate 76 ml/min (>60); GFR (African American) 92 ML/MIN (>60); Globulin 3.4 g/dL (1.3-3.2); Glucose 103 mg/dl (74-100); Total Protein,Serum 6.8 g/dl (6.3-8.2)
[2022-06-25 08:42] LABS: Lactic Acid 1.5 mmol/L (0.7-2.1)
[2022-06-25 08:47] LABS: C-Reactive Protein 23.6 mg/L (0-4)
--- NOTE | 2022-06-25 08:50 | PC.NURSE ---
ROUNDED ON PT AT THIS TIME, PT UNABLE TO PROVIDE URINE SPECIMEN AT THIS TIME. WILL NOTIFY STAFF. DRINK PROVIDED PER PT REQUEST. NO FURTHER NEEDS AT THIS TIME
[2022-06-25 08:55] LABS: Basophils # 0.2 K/mm3 (0-0.2); Basophils % 1.4 % (0.1-2.0); Eosinophils # 0.1 K/mm3 (0.0-0.4); Eosinophils % 0.4 % (0.1-12.0); Hematocrit 35.8 % (37.0-47.0); Hemoglobin 11.5 g/dL (12.2-16.2); Lymphocytes # 1.4 K/mm3 (0.7-4.5); Mean Corpuscular HGB Conc 32.2 g/dL (31.8-35.4); Mean Corpuscular Hemoglobin 31.9 pg (27.0-31.2); Mean Corpuscular Volume 99.1 fl (81-99); Mean Platelet Volume 9.2 fl (7.4-10.4); Monocytes # 0.9 K/mm3 (0.1-1.0); Monocytes % 5.7 % (1.7-9.3); Neutrophils # 13.3 K/mm3 (1.8-7.8); Neutrophils % 83.4 % (37.0-80.0); Platelet Count 225 K/mm3 (142-424); Red Blood Count 3.62 M/mm3 (4.20-5.40); Red Cell Distribution Width 13.8 % (11.5-17.5); White Blood Count 15.9 K/mm3 (4.8-10.8)
--- NOTE | 2022-06-25 08:56 | HMH.EDGENADL ---
Discharge Plan Disposition Patient Disposition: Home, Self-Care Condition: Good Prescriptions Prescriptions: New acyclovir 800 mg tablet 800 mg PO Q8H Qty: 30 0RF No Action aspirin 81 mg tablet,delayed release (DR/EC) 81 mg PO DAILY divalproex [Depakote] 250 mg tablet,delayed release (DR/EC) 250 mg PO TID escitalopram oxalate 20 mg tablet 20 mg PO DAILY nortriptyline 25 mg capsule 25 mg PO HS acetaminophen 500 mg tablet 500 mg PO Q6H PRN (Reason: pain) sennosides [Senna Lax] 8.6 mg tablet 17.2 mg PO DAILY [place] Saline Gel 1 applic TOPICAL HS PRN (Reason: NASAL IRRITATION) Qty: 14.1 0RF aripiprazole 10 mg tablet 10 mg PO HS metoprolol succinate 50 MG tablet extended release 24 hr 50 mg PO DAILY sulfamethoxazole-trimethoprim [Bactrim DS] 800-160 mg tablet 1 tab PO BID pantoprazole 40 mg tablet,delayed release (DR/EC) 40 mg PO DAILY levofloxacin 750 mg tablet 750 mg PO 1100 Rx Instructions: start 06/23/22 Referrals Follow up/Referrals: Jung Rinaldi MD [Primary Care Provider] - See instructions Activity Restrictions/Add. Instructions Additional Instructions/Restrictions: Please follow up with your primary care physician regarding your ongoing symptoms. Please continue to utilize your Bactrim/Levofloxacin antibiotic as prescribed per your med list. You have also been prescribed acyclovir please take as prescribed given concern for herpes component. Please return if symptoms worsen or do not improve. Clinical Impressions Clinical Impression: Cellulitis, Herpes dermatitis, Hypokalemia Instructions Patient Instructions: Herpes (Alternative Therapy), Cellulitis, Hypokalemia Print Language Print Language: Mozambican Discharge ED Provider: Kristina Boyd General Adult HPI General Chief complaint: Wound/Laceration Stated complaint: cellulitis of feet Time Seen by Provider: 06/25/22 08:45 Mode of Arrival: EMS Source of Information: Patient Limitations: No Limitations Description of Symptoms (Recalled from ER Triage Doc. by RN): PT BROUGHT IN VIA EMS FOR SWELLING AND REDNESS TO BILATERAL LOWER LEGS. PT RECENTLY DISCHARGED FOR PREVIOUS CONDITION History of Present Illness HPI narrative: Mrs. Cosme is a 51-year-old female with past medical history for recurring skin infections, seizure disorder and COPD presenting to the emergency department from nursing home due to reoccuring and remitting skin infections in the lower extremities. Patient recently placed on bactrim/levofloxacin for treatment with some improvement. Patient reports symptom onset greater than 2 weeks prior, but she can not recall the exact date of symptoms onset. Patient has swelling and honey crusted lesions to the lower extremities and face. No particular dermatomal fashion. No purulent drainage noted. Patient reports she believes it is secondary to bug bites . Patient has been evaluated by her primary care physician who placed her on the abx regiment. Patient is also been seen in the emergency department multiple times for similar symptoms and treated with steroids as well as topical antibiotics within the last few weeks. Patient denies any fevers, chills, chest pain, dyspnea, abdominal pain or other systemic signs of infection. Patient otherwise in her normal state of health. Of Note Patient recently admitted to hospital after being found down in bathtub un-concious intubated for airway protection and discharged in stable condition. At dischage patient had known wounds to her LE and face. MD complaint: skin infection Onset (ago): week(s) Location: face and lower extremity Radiation: non-radiation Severity: moderate Consistency: intermittent Relieving factors: none Exacerbating factors: none Associated symptoms: denies other symptoms Treatments prior to arrival: none Related Data Home Medications Medication Instructions Recorded Confirmed acetaminophen 5
[2022-06-25 08:57] LABS: MANUAL DIFFERENTIAL MANUAL DIFFERENTIAL (MANUAL DIFF)
[2022-06-25 09:11] LABS: Hypochromasia 1+; Lymphocytes % 19 % (10-50); Monocytes % 3 % (2-9); Neutrophils % 76 % (42-76); Platelet Estimate Normal; Target Cells 1+; Total Cells Counted 100
[2022-06-25 09:12] LABS: Erythrocyte Sedimentation Rate 49 mm/hr (0-20)
--- NOTE | 2022-06-25 09:30 | PC.NURSE ---
PT PROVIDED BREAKFAST TRAY
--- NOTE | 2022-06-25 09:46 | PC.NURSE ---
[facility] STAFF NOTIFIED OF PT READY FOR DISCHARGE
[2022-06-25 10:05] VITALS: BP 117/83; PULSE 98; RESP 20; TEMP 37.1; O2SAT 97
== END 2022-06-25 10:10 | disposition home or self-care (01) ==
PROVIDERS: Emergency Provider Student in an Organized Health Care Education/Training Program; PCP Emergency Medicine
DX: L03.116 Cellulitis of left lower limb (principal); L03.115 Cellulitis of right lower limb; B00.1 Herpesviral vesicular dermatitis; E87.6 Hypokalemia; Z79.82 Long term (current) use of aspirin; Z79.899 Other long term (current) drug therapy; Z88.1 Allergy status to other antibiotic agents; F41.9 Anxiety disorder, unspecified; F32.A Depression, unspecified; K21.9 Gastro-esophageal reflux disease without esophagitis; R56.9 Unspecified convulsions; Z87.820 Personal history of traumatic brain injury
CPT/HCPCS: 80053; 83605; 85007; 85025; 85651; 86140; 99283